=== PATIENT | male | born 1980 | race Caucasian/White ===

== ENCOUNTER 2016-06-04 18:09 | Emergency (ER) | payer OTHER ==
[2016-06-04] MEDS ORDERED: LANSOPRAZOLE 30 MG TAB.RAP.DR PO ONE (18:30)
--- NOTE | 2016-06-04 18:36 | ER Document Report ---
ED Medical Screen (RME) - General Stated Complaint: ABDOMINAL PAIN Time seen by provider: 18:33 Mode of Arrival: Ambulatory Information source: Patient Notes: 36-year-old male complaining of burning left upper quadrant abdominal pain for 6 months. He drinks 9 beers 3 times a week. He has had pancreatitis in the past but it does not hurt that bad. No black in his stools. He came in tonight because the pain has gotten worse the past 2-3 days. I have greeted and performed a rapid initial assessment of this patient. A comprehensive ED assessment, evaluation of the patient, analysis of test results , and completion of the medical decision making process will be contacted by additional ED providers. TRAVEL OUTSIDE OF THE [place] IN LAST 30 DAYS: No - Related Data Allergies/Adverse Reactions: No Known Allergies Allergy (Verified 06/04/16 18:32) Past Medical History - Social History Chew tobacco use (# tins/day): No Frequency of alcohol use: Social Drug Abuse: None Renal/ Medical History: Denies: Hx Peritoneal Dialysis - Immunizations Hx Diphtheria, Pertussis, Tetanus Vaccination: Yes - unk Physical Exam - Vital signs Vitals: Temp Pulse Resp BP Pulse Ox 97.8 F 90 16 134/79 H 99 06/04/16 18:11 06/04/16 18:11 06/04/16 18:11 06/04/16 18:11 06/04/16 18:11 Course - Vital Signs Vital signs: Temp Pulse Resp BP Pulse Ox 97.8 F 90 16 134/79 H 99 06/04/16 18:11 06/04/16 18:11 06/04/16 18:11 06/04/16 18:11 06/04/16 18:11
[2016-06-04 18:56] LABS: ABSOLUTE BASOPHILS # (AUTO) 0.1 10^3/uL (0.0-0.2); ABSOLUTE EOSINOPHILS # (AUTO) 0.3 10^3/uL (0.0-0.6); ABSOLUTE LYMPHOCYTES (AUTO) 3.3 10^3/uL (0.5-4.7); ABSOLUTE MONOCYTES (AUTO) 0.6 10^3/uL (0.1-1.4); ABSOLUTE NEUT (AUTO) 8.7 10^3/uL (1.7-8.2); BASOPHILS % (AUTO) 0.5 % (0-2); EOSINOPHILS % (AUTO) 2.2 % (0-6); HEMATOCRIT 42.2 % (37.9-51.0); HGB HCT DIFFERENCE -0.2; LYMPHOCYTES % (AUTO) 25.4 % (13-45); MEAN CORPUSCULAR HEMOGLOBIN 30.9 pg (27.0-33.4); MEAN CORPUSCULAR HGB CONC 33.2 g/dL (32.0-36.0); MEAN CORPUSCULAR VOLUME 93 fl (80-97); MONOCYTES % (AUTO) 4.7 % (3-13); RED BLOOD COUNT 4.53 10^6/uL (4.35-5.55); RED CELL DISTRIBUTION WIDTH 13.1 % (11.5-14.0); SEGMENTED NEUTROPHILS % (AUTO) 67.2 % (42-78); WHITE BLOOD COUNT 12.9 10^3/uL (4.0-10.5)
[2016-06-04 19:17] LABS: ALANINE AMINOTRANSFERASE 24 U/L (21-72); ALBUMIN 4.7 g/dL (3.5-5.0); ALKALINE PHOSPHATASE 66 U/L (38-126); ANION GAP 10 (5-19); ASPARTATE AMINO TRANSFERASE 19 U/L (17-59); BILIRUBIN,TOTAL 0.5 mg/dL (0.2-1.3); BLOOD UREA NITROGEN 19 mg/dL (7-20); CALCIUM 10.1 mg/dL (8.4-10.2); CARBON DIOXIDE 28 mmol/L (22-30); CHLORIDE 105 mmol/L (98-107); CREATININE RESULT 0.96 mg/dL (0.52-1.25); GLUCOSE 75 mg/dL (75-110); LIPASE 36.5 U/L (23-300); POTASSIUM 4.8 mmol/L (3.6-5.0); TOTAL PROTEIN 7.3 g/dL (6.3-8.2)
[2016-06-04] MEDS ORDERED: MAG HYDROX/AL HYDROX/SIMETH SUSP 30 ML UDCUP PO ONE (20:15)
[2016-06-04] MEDS ORDERED: FAMOTIDINE 20 MG TABLET PO ONE (20:15)
[2016-06-04] MEDS ORDERED: SUCRALFATE 1 GM TABLET PO ONE (20:15)
[2016-06-04] MEDS ORDERED: IPRATROPIUM/ALBUTEROL 0.5-2.5 MG/3 ML AMPUL NEB ONE (20:15)
--- NOTE | 2016-06-04 20:17 | ER Document Report ---
ED GI/ - General Chief Complaint: Abdominal Pain Stated Complaint: ABDOMINAL PAIN Time seen by provider: 20:10 Mode of Arrival: Ambulatory Notes: Patient is a 36-year-old male that comes emergency department for chief complaint of worsening burning and pain in his left upper abdomen, worse over the past 2-3 days, he states that he has been drinking more regular alcohol after the holidays, states he smokes regularly. Patient states he has had pancreatitis in the past but this does not feel as bad, he denies vomiting, he denies abnormal bowel movements, he denies any abdominal surgeries or medical problems. TRAVEL OUTSIDE OF THE [place] IN LAST 30 DAYS: No - Related Data Allergies/Adverse Reactions: No Known Allergies Allergy (Verified 06/04/16 18:32) Past Medical History - General Information source: Patient - Social History Smoking Status: Current Every Day Smoker Chew tobacco use (# tins/day): No Smoking Education Provided: Yes - <3 min Frequency of alcohol use: Social Drug Abuse: None Lives with: Family Family History: Reviewed & Not Pertinent Patient has suicidal ideation: No Patient has homicidal ideation: No - Medical History Medical History: Negative Renal/ Medical History: Denies: Hx Peritoneal Dialysis Surgical Hx: Negative - Immunizations Hx Diphtheria, Pertussis, Tetanus Vaccination: Yes - unk Review of Systems - Review of Systems Constitutional: No symptoms reported EENT: No symptoms reported Cardiovascular: No symptoms reported Respiratory: No symptoms reported Gastrointestinal: See HPI Genitourinary: No symptoms reported Male Genitourinary: No symptoms reported Musculoskeletal: No symptoms reported Skin: No symptoms reported Hematologic/Lymphatic: No symptoms reported Neurological/Psychological: No symptoms reported Physical Exam - Vital signs Vitals: Temp Pulse Resp BP Pulse Ox 97.8 F 90 16 134/79 H 99 06/04/16 18:11 06/04/16 18:11 06/04/16 18:11 06/04/16 18:11 06/04/16 18:11 Interpretation: Normal - General General appearance: Appears well, Alert In distress: None - HEENT Head: Normocephalic, Atraumatic Eyes: Normal Pupils: PERRL - Respiratory Respiratory status: No respiratory distress Chest status: Nontender Breath sounds: Normal Chest palpation: Normal - Cardiovascular Rhythm: Regular Heart sounds: Normal auscultation Murmur: No - Abdominal Inspection: Normal Distension: No distension Bowel sounds: Normal Tenderness: Tender - Patient is tender in the left upper quadrant on examination , otherwise abdomen is unremarkable Organomegaly: No organomegaly - Back Back: Normal, Nontender. No: Tender - Extremities General upper extremity: Normal inspection, Nontender, Normal color, Normal ROM , Normal temperature General lower extremity: Normal inspection, Nontender, Normal color, Normal ROM , Normal temperature, Normal weight bearing. No: Nicolette's sign - Neurological Neuro grossly intact: Yes Cognition: Normal Orientation: AAOx4 [place] Coma Scale Eye Opening: Spontaneous [place] Coma Scale Verbal: Oriented [place] Coma Scale Motor: Obeys Commands [place] Coma Scale Total: 15 Speech: Normal Motor strength normal: LUE, RUE, LLE, RLE Sensory: Normal - Psychological Associated symptoms: Normal affect, Normal mood - Skin Skin Temperature: Warm Skin Moisture: Dry Skin Color: Normal Course - Re-evaluation Re-evalutation: Left upper quadrant tenderness, negative lipase, CBC and chemistry generally unremarkable otherwise. Patient given Carafate, Pepcid, Maalox, after this patient reports symptoms significantly improved. Will treat for gastritis, discussed smoking cessation, discussed risk factors, follow-up, and return precautions. Patient states understanding and agreement with plan. - Vital Signs Vital signs: Temp Pulse Resp BP Pulse Ox 97.6 F 62 18 123/81 100 06/04/16 21:01 06/04/16 21:01 06/04/16 21:01 06/04/16 21:01 06/04/16 21:01 - Laboratory Result Diagrams: 06/04/16 18:35 06/04/16 18:35 Laboratory results interpreted by me: 06/04/16 18:35 WBC 12.9 H Absolute Neutrophils 8.7 H Discharge - Discharge Clinical Impression: Abdominal pain Qualifiers: Abdominal location: upper abdomen, unspecified Qualified Code(s): R10.10 - Upper abdominal pain, unspecified Condition: Stable Disposition: HOME, SELF-CARE Additional Instructions: Your lab work and examination does not indicate pancreatitis or another surgical abnormality Your examination is consistent with inflammation in your stomach and small intestine (gastritis) Take the Carafate and omeprazole as directed, take Tums or Rolaids in addition if needed, avoid alcohol, smoking, spicy food, caffeine, NSAIDs. Follow-up with primary care referral for additional management. Return to the emergency department for any concerning or worsening symptoms including severe abdominal pain, vomiting blood, black stools, etc. Prescriptions: Omeprazole 40 mg PO DAILY #60 capsule. Sucralfate [Carafate 1 gm Tablet] 1 gm PO QID #40 tablet Forms: Smoking Cessation Education Referrals: [facility] [Provider Group] - Follow up as needed
[2016-06-04 21:11] VITALS: BP 123/81
== END 2016-06-04 21:12 | disposition home or self-care (01) ==
LOC: ER 18:09
DX: R10.12 Left upper quadrant pain (principal); R10.812 Left upper quadrant abdominal tenderness; F17.200 Nicotine dependence, unspecified, uncomplicated; Z71.6 Tobacco abuse counseling; Z87.19 Personal history of other diseases of the digestive system
CPT/HCPCS: 94640; 99284; 36415; 83690; 85025; 80053; J7620

== ENCOUNTER 2016-06-12 21:55 | Emergency (ER) | payer OTHER ==
[2016-06-13] MEDS ORDERED: NORMAL SALINE 1000 ML 1,000 ML IV PRN (01:15)
[2016-06-13] MEDS ORDERED: FAMOTIDINE INJ/PF 20 MG/2 ML SDV IV ONE (01:15)
[2016-06-13] MEDS ORDERED: ONDANSETRON HCL INJ/PF 4 MG/2 ML SDV IV ONE (01:15)
--- NOTE | 2016-06-13 01:16 | ER Document Report ---
ED GI/ - General Chief Complaint: Abdominal Pain Stated Complaint: BACK PAIN Time seen by provider: 01:16 Mode of Arrival: Ambulatory Information source: Patient TRAVEL OUTSIDE OF THE [place] IN LAST 30 DAYS: No - HPI Patient complains to provider of: Abdominal pain Onset: Just prior to arrival Timing/Duration: Sudden Quality of pain: Sharp, Stabbing Severity at maximum: Moderate Severity in ED: Moderate Pain Level: 3 Location: Epigastric Associated symptoms: Nausea Exacerbated by: Denies Relieved by: Denies Similar symptoms previously: Yes Recently seen / treated by doctor: Yes Notes: 06/13/16 04:09 Patient is a 36-year-old male presenting to the emergency room complaining of epigastric abdominal pain that is sharp and stabbing in nature, as well as bilateral flank pain, he reports nausea associated with it but no vomiting or diarrhea, no fever, 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 and states he was drinking on Monday, he also reports a history of a possible gastric ulcer, was recently prescribed Carafate which he states is not helping - Related Data Allergies/Adverse Reactions: No Known Allergies Allergy (Verified 06/12/16 22:04) Home Medications: Current Home Medications Omeprazole [Prilosec] 2 tab PO BID 06/12/16 [History] Sucralfate [Sucralfate] 1 tab PO Q6H 06/12/16 [History] Past Medical History - General Information source: Patient - Social History Smoking Status: Current Every Day Smoker Chew tobacco use (# tins/day): No Frequency of alcohol use: Social Drug Abuse: None Family History: Reviewed & Not Pertinent Renal/ Medical History: Denies: Hx Peritoneal Dialysis - Immunizations Hx Diphtheria, Pertussis, Tetanus Vaccination: Yes - unk Review of Systems - Review of Systems Constitutional: No symptoms reported EENT: No symptoms reported Cardiovascular: No symptoms reported Respiratory: No symptoms reported Gastrointestinal: See HPI Genitourinary: No symptoms reported Male Genitourinary: No symptoms reported Musculoskeletal: No symptoms reported Skin: No symptoms reported Hematologic/Lymphatic: No symptoms reported Neurological/Psychological: No symptoms reported -: Yes All other systems reviewed and negative Physical Exam - Vital signs Vitals: Temp Pulse Resp BP Pulse Ox 98.0 F 78 18 134/84 H 98 06/12/16 22:02 06/12/16 22:02 06/12/16 22:02 06/12/16 22:02 06/12/16 22:02 Interpretation: Normal - General General appearance: Appears well, Alert - HEENT Head: Normocephalic, Atraumatic Eyes: Normal Pupils: PERRL - Respiratory Respiratory status: No respiratory distress Chest status: Nontender Breath sounds: Normal Chest palpation: Normal - Cardiovascular Rhythm: Regular Heart sounds: Normal auscultation Murmur: No - Abdominal Inspection: Normal Distension: No distension Bowel sounds: Normal Tenderness: Tender - Epigastric tenderness Organomegaly: No organomegaly - Back Back: Normal, Nontender - Extremities General upper extremity: Normal inspection, Nontender, Normal color, Normal ROM , Normal temperature General lower extremity: Normal inspection, Nontender, Normal color, Normal ROM , Normal temperature, Normal weight bearing. No: Nicolette's sign - Neurological Neuro grossly intact: Yes Cognition: Normal Orientation: AAOx4 [place] Coma Scale Eye Opening: Spontaneous [place] Coma Scale Verbal: Oriented [place] Coma Scale Motor: Obeys Commands [place] Coma Scale Total: 15 Speech: Normal Motor strength normal: LUE, RUE, LLE, RLE Sensory: Normal - Psychological Associated symptoms: Normal affect, Normal mood - Skin Skin Temperature: Warm Skin Moisture: Dry Skin Color: Normal Course - Re-evaluation Re-evalutation: 06/13/16 02:50 Patient's labs were discussed with him at bedside which are relatively unremarkable, he does have a mildly elevated lipase, patient was advised to discontinue alcohol consumption, follow up with a pasting machine offbearer in 2-3 days or return if symptoms worsen, since Carafate does not seem to be helping his symptoms we will change the medication to Pepcid, patient was advised to return if symptoms worsen or any additional concerns,, patient acknowledges understanding and agreement with this plan - Vital Signs Vital signs: Temp Pulse Resp BP Pulse Ox 97.7 F 74 16 133/83 H 98 06/13/16 03:09 06/13/16 03:09 06/13/16 03:09 06/13/16 03:09 06/13/16 03:09 - Laboratory Result Diagrams: 06/13/16 01:50 06/13/16 01:50 Laboratory results interpreted by me: 06/13/16 06/13/16 01:50 01:50 WBC 13.7 H Lipase 459.0 H Discharge - Discharge Clinical Impression: Epigastric abdominal pain Condition: Stable Disposition: HOME, SELF-CARE Instructions: Gastroenterology, Reflux Disease (GERD) ([facility]) Additional Instructions: Follow-up with a pasting machine offbearer in the next week. Stop drinking alcohol. Return to the emergency room immediately if symptoms worsen or any additional concerns. Prescriptions: Famotidine [Pepcid 20 mg Tablet] 20 mg PO BID #12 tablet
[2016-06-13 02:02] LABS: ABSOLUTE BASOPHILS # (AUTO) 0.1 10^3/uL (0.0-0.2); ABSOLUTE EOSINOPHILS # (AUTO) 0.4 10^3/uL (0.0-0.6); ABSOLUTE LYMPHOCYTES (AUTO) 4.3 10^3/uL (0.5-4.7); ABSOLUTE MONOCYTES (AUTO) 0.8 10^3/uL (0.1-1.4); ABSOLUTE NEUT (AUTO) 8.2 10^3/uL (1.7-8.2); BASOPHILS % (AUTO) 0.5 % (0-2); EOSINOPHILS % (AUTO) 2.7 % (0-6); HEMATOCRIT 40.8 % (37.9-51.0); HGB HCT DIFFERENCE 1.2; LYMPHOCYTES % (AUTO) 31.1 % (13-45); MEAN CORPUSCULAR HEMOGLOBIN 31.6 pg (27.0-33.4); MEAN CORPUSCULAR HGB CONC 34.3 g/dL (32.0-36.0); MEAN CORPUSCULAR VOLUME 92 fl (80-97); MONOCYTES % (AUTO) 5.6 % (3-13); RED BLOOD COUNT 4.44 10^6/uL (4.35-5.55); RED CELL DISTRIBUTION WIDTH 13.5 % (11.5-14.0); SEGMENTED NEUTROPHILS % (AUTO) 60.1 % (42-78); WHITE BLOOD COUNT 13.7 10^3/uL (4.0-10.5)
[2016-06-13 02:18] LABS: ALANINE AMINOTRANSFERASE 23 U/L (21-72); ALBUMIN 4.1 g/dL (3.5-5.0); ALKALINE PHOSPHATASE 62 U/L (38-126); ANION GAP 10 (5-19); ASPARTATE AMINO TRANSFERASE 19 U/L (17-59); BILIRUBIN,TOTAL 0.6 mg/dL (0.2-1.3); BLOOD UREA NITROGEN 14 mg/dL (7-20); CALCIUM 9.9 mg/dL (8.4-10.2); CARBON DIOXIDE 28 mmol/L (22-30); CHLORIDE 103 mmol/L (98-107); CREATININE RESULT 0.83 mg/dL (0.52-1.25); GLUCOSE 88 mg/dL (75-110); POTASSIUM 4.1 mmol/L (3.6-5.0); SODIUM 140.5 mmol/L (137-145); TOTAL PROTEIN 7.1 g/dL (6.3-8.2)
[2016-06-13 03:11] VITALS: BP 133/83
== END 2016-06-13 03:10 | disposition home or self-care (01) ==
LOC: ER 21:55
DX: R10.13 Epigastric pain (principal); R11.0 Nausea; F17.200 Nicotine dependence, unspecified, uncomplicated
CPT/HCPCS: 99284; 96361; 96374; 96375; 36415; 83690; 85025; 80053; J2405; J7030; S0028

== ENCOUNTER 2016-06-14 07:29 | Emergency (ER) | payer OTHER ==
--- NOTE | 2016-06-14 08:03 | EKG REPORT ---
SEVERITY:- NORMAL ECG - SINUS RHYTHM : Confirmed by: Dereje Mathew MD 14-Jun-2016 08:02:47
[2016-06-14 08:44] LABS: APPEARANCE,URINE SLIGHTLY-CLOUDY; BILIRUBIN,URINE NEGATIVE (NEGATIVE); GLUCOSE, URINE NEGATIVE (NEGATIVE); KETONES,URINE TRACE mg/dL (NEGATIVE); LEUKOCYTE ESTERASE,URINE NEGATIVE (NEGATIVE); NITRITE,URINE NEGATIVE (NEGATIVE); PROTEIN,URINE NEGATIVE (NEGATIVE); URINE SPECIFIC GRAVITY 1.021; UROBILINOGEN,URINE NEGATIVE mg/dL (<2.0)
[2016-06-14 08:46] LABS: ABSOLUTE BASOPHILS # (AUTO) 0.1 10^3/uL (0.0-0.2); ABSOLUTE EOSINOPHILS # (AUTO) 0.4 10^3/uL (0.0-0.6); ABSOLUTE LYMPHOCYTES (AUTO) 2.4 10^3/uL (0.5-4.7); ABSOLUTE MONOCYTES (AUTO) 0.9 10^3/uL (0.1-1.4); ABSOLUTE NEUT (AUTO) 13.4 10^3/uL (1.7-8.2); BASOPHILS % (AUTO) 0.4 % (0-2); EOSINOPHILS % (AUTO) 2.5 % (0-6); HEMATOCRIT 41.4 % (37.9-51.0); HEMOGLOBIN 14.2 g/dL (13.5-17.0); HGB HCT DIFFERENCE 1.2; LYMPHOCYTES % (AUTO) 13.8 % (13-45); MEAN CORPUSCULAR HEMOGLOBIN 31.4 pg (27.0-33.4); MEAN CORPUSCULAR HGB CONC 34.2 g/dL (32.0-36.0); MEAN CORPUSCULAR VOLUME 92 fl (80-97); MONOCYTES % (AUTO) 5.4 % (3-13); RED BLOOD COUNT 4.51 10^6/uL (4.35-5.55); SEGMENTED NEUTROPHILS % (AUTO) 77.9 % (42-78); WHITE BLOOD COUNT 17.2 10^3/uL (4.0-10.5)
[2016-06-14 09:08] LABS: ALANINE AMINOTRANSFERASE 21 U/L (21-72); ALBUMIN 4.5 g/dL (3.5-5.0); ALKALINE PHOSPHATASE 65 U/L (38-126); ANION GAP 10 (5-19); ASPARTATE AMINO TRANSFERASE 27 U/L (17-59); BILIRUBIN,TOTAL 0.5 mg/dL (0.2-1.3); BLOOD UREA NITROGEN 14 mg/dL (7-20); CALCIUM 9.6 mg/dL (8.4-10.2); CARBON DIOXIDE 26 mmol/L (22-30); CHLORIDE 104 mmol/L (98-107); CREATININE RESULT 0.77 mg/dL (0.52-1.25); GLUCOSE 113 mg/dL (75-110); POTASSIUM 3.7 mmol/L (3.6-5.0); SODIUM 139.7 mmol/L (137-145); TOTAL PROTEIN 7.2 g/dL (6.3-8.2)
[2016-06-14] MEDS ORDERED: ONDANSETRON HCL INJ/PF 4 MG/2 ML SDV IV ONE (09:10)
[2016-06-14 09:22] LABS: LIPASE 2087.8 U/L (23-300)
[2016-06-14] MEDS ORDERED: NORMAL SALINE 1000 ML 1,000 ML IV ONE (09:38)
[2016-06-14] MEDS ORDERED: MORPHINE SULFATE 10 MG/ML INJ IV ONE (09:54)
[2016-06-14 10:28] LABS: URINE BARBITURATES SCREEN NEGATIVE; URINE METHADONE SCREEN NEGATIVE; URINE OPIATES LOW UNCONFIRMED POSITIVE; URINE PHENCYCLIDINE SCREEN NEGATIVE
[2016-06-14] MEDS ORDERED: OXYCODONE HCL IR 5 MG TABLET PO ONE (12:05)
--- NOTE | 2016-06-14 12:11 | ER Document Report ---
ED General - General Chief Complaint: Upper Abdominal Pain Stated Complaint: ABDOMINAL, BACK AND CHEST PAIN TRAVEL OUTSIDE OF THE [place] IN LAST 30 DAYS: No - HPI Patient complains to provider of: epigastric and back pain Notes: A coming in for epigastric abdominal pain and back pain nausea vomiting. Patient has a history of pancreatitis. Patient with recent seen and evaluated diagnosed with gastritis. Patient states he continues to drink alcohol. Otherwise patient vital signs are within normal limits no signs of obvious distress upon my evaluation. No recent antibiotics no recent travel denies fevers chills diarrhea - Related Data Allergies/Adverse Reactions: No Known Allergies Allergy (Verified 06/14/16 07:41) Past Medical History - Social History Smoking Status: Current Every Day Smoker Chew tobacco use (# tins/day): Yes Frequency of alcohol use: Social Drug Abuse: None Family History: Reviewed & Not Pertinent Patient has suicidal ideation: No Patient has homicidal ideation: No Renal/ Medical History: Reports: Hx Kidney Stones. Denies: Hx Peritoneal Dialysis - Immunizations Hx Diphtheria, Pertussis, Tetanus Vaccination: Yes - unk Review of Systems - Review of Systems Gastrointestinal: Abdominal pain, Nausea, Vomiting -: Yes All other systems reviewed and negative Physical Exam - Vital signs Vitals: Temp Pulse Resp BP Pulse Ox 98.1 F 78 20 144/90 H 100 06/14/16 07:39 06/14/16 07:39 06/14/16 07:39 06/14/16 07:39 06/14/16 07:39 Interpretation: Normal - General General appearance: Appears well, Alert - HEENT Head: Normocephalic, Atraumatic Eyes: Normal Pupils: PERRL - Respiratory Respiratory status: No respiratory distress Chest status: Nontender Breath sounds: Normal Chest palpation: Normal - Cardiovascular Rhythm: Regular Heart sounds: Normal auscultation Murmur: No - Abdominal Inspection: Normal Distension: No distension Bowel sounds: Normal Tenderness: Tender - Mild tenderness epigastric region. No: McBurney's point, Muro's sign, Guarding, Rebound Organomegaly: No organomegaly - Back Back: Normal, Nontender - Extremities General upper extremity: Normal inspection, Nontender, Normal color, Normal ROM , Normal temperature General lower extremity: Normal inspection, Nontender, Normal color, Normal ROM , Normal temperature, Normal weight bearing. No: Nicolette's sign - Neurological Neuro grossly intact: Yes Cognition: Normal Orientation: AAOx4 [place] Coma Scale Eye Opening: Spontaneous [place] Coma Scale Verbal: Oriented [place] Coma Scale Motor: Obeys Commands [place] Coma Scale Total: 15 Speech: Normal Motor strength normal: LUE, RUE, LLE, RLE Sensory: Normal - Psychological Associated symptoms: Normal affect, Normal mood - Skin Skin Temperature: Warm Skin Moisture: Dry Skin Color: Normal Course - Re-evaluation Re-evalutation: 06/14/16 21:02 Patient's lab work is consistent with pancreatitis. Ultrasound was negative. More likely this is alcoholic induced pancreatitis patient has been diagnosed with this in the past. Patient able to tolerate by mouth. Patient's pain was under control here in the ER. Patient is a good candidate for outpatient management of his pancreatitis clear liquid diet for the next 24 hours then advance as tolerated patient states he understands these instructions agrees with discharge home - Vital Signs Vital signs: Temp Pulse Resp BP Pulse Ox 98.1 F 78 12 136/65 H 97 06/14/16 07:39 06/14/16 07:39 06/14/16 12:01 06/14/16 12:01 06/14/16 12:01 - Laboratory Result Diagrams: 06/14/16 08:22 06/14/16 08:22 Laboratory results interpreted by me: 06/14/16 06/14/16 06/14/16 08:22 08:22 08:22 WBC 17.2 H Absolute Neutrophils 13.4 H Glucose 113 H Lipase 2087.8 H Urine Ketones TRACE H Discharge - Discharge Clinical Impression: Alcoholic pancreatitis Qualifiers: Chronicity: acute Acute pancreatitis complication: unspecified Qualified Code(s ): K85.20 - Alcohol induced acute pancreatitis without necrosis or infection Condition: Good Disposition: HOME, SELF-CARE Instructions: Pancreatitis ([facility]), Chronic Alcoholism ([facility]), Oral Narcotic Medication ([facility]) Additional Instructions: Laboratory today is consistent with pancreatitis. Your ultrasound does not show any significant pathology. More likely this is due to alcohol ingestion. Take pain medication as prescribed nausea medication as prescribed. Return to ER symptoms worsen follow-up with your primary care physician. Please stop drinking alcohol Please continue your previously prescribe medications for gastritis. Prescriptions: Ondansetron [Zofran Odt 4 mg Tablet] 1 - 2 tab PO Q4H PRN #20 tab.rapdis PRN Reason: For Nausea/Vomiting Oxycodone HCl 5 mg PO Q6 #30 tablet Forms: Return to Work
[2016-06-14 12:20] VITALS: BP 136/65
== END 2016-06-14 12:32 | disposition home or self-care (01) ==
LOC: ER 07:29
DX: K85.20 Alcohol induced acute pancreatitis without necrosis or infection (principal); R10.10 Upper abdominal pain, unspecified; M54.9 Dorsalgia, unspecified; R07.9 Chest pain, unspecified; R11.2 Nausea with vomiting, unspecified; F17.210 Nicotine dependence, cigarettes, uncomplicated
CPT/HCPCS: 93005; 99284; 96374; 96375; 36415; 80307 ×2; 83690; 85025; 80053; 81001; 76705; 93976; 93010; J2270; J2405; J7030

== ENCOUNTER 2016-07-03 23:53 | Emergency (ER) | payer OTHER ==
[2016-07-04] VITALS: BP 111/74
== END 2016-07-04 00:10 | disposition left against medical advice (07) ==
LOC: ER 23:53
DX: Z53.21 Procedure and treatment not carried out due to patient leaving prior to being seen by health care provider (principal)

== ENCOUNTER 2016-07-26 09:25 | Emergency (ER) | payer OTHER ==
[2016-07-26 10:12] LABS: ABSOLUTE EOSINOPHILS # (AUTO) 0.5 10^3/uL (0.0-0.6); ABSOLUTE LYMPHOCYTES (AUTO) 2.8 10^3/uL (0.5-4.7); ABSOLUTE MONOCYTES (AUTO) 0.8 10^3/uL (0.1-1.4); BASOPHILS % (AUTO) 0.3 % (0-2); EOSINOPHILS % (AUTO) 4.1 % (0-6); HEMATOCRIT 45.2 % (37.9-51.0); HEMOGLOBIN 15.7 g/dL (13.5-17.0); HGB HCT DIFFERENCE 1.9; LYMPHOCYTES % (AUTO) 25.5 % (13-45); MEAN CORPUSCULAR HEMOGLOBIN 31.7 pg (27.0-33.4); MEAN CORPUSCULAR HGB CONC 34.6 g/dL (32.0-36.0); MEAN CORPUSCULAR VOLUME 92 fl (80-97); RED BLOOD COUNT 4.93 10^6/uL (4.35-5.55); RED CELL DISTRIBUTION WIDTH 12.9 % (11.5-14.0); SEGMENTED NEUTROPHILS % (AUTO) 63.1 % (42-78); WHITE BLOOD COUNT 11.1 10^3/uL (4.0-10.5)
[2016-07-26 10:26] LABS: APPEARANCE,URINE SLIGHTLY-CLOUDY; BILIRUBIN,URINE NEGATIVE (NEGATIVE); GLUCOSE, URINE NEGATIVE (NEGATIVE); KETONES,URINE TRACE mg/dL (NEGATIVE); LEUKOCYTE ESTERASE,URINE NEGATIVE (NEGATIVE); NITRITE,URINE NEGATIVE (NEGATIVE); PROTEIN,URINE NEGATIVE (NEGATIVE); URINE SPECIFIC GRAVITY 1.031; UROBILINOGEN,URINE NEGATIVE mg/dL (<2.0)
[2016-07-26 10:32] LABS: ALANINE AMINOTRANSFERASE 25 U/L (21-72); ALBUMIN 4.9 g/dL (3.5-5.0); ALKALINE PHOSPHATASE 59 U/L (38-126); ANION GAP 13 (5-19); ASPARTATE AMINO TRANSFERASE 19 U/L (17-59); BILIRUBIN,DIRECT 0.3 mg/dL (0.0-0.4); BLOOD UREA NITROGEN 17 mg/dL (7-20); CALCIUM 10.5 mg/dL (8.4-10.2); CARBON DIOXIDE 27 mmol/L (22-30); CHLORIDE 103 mmol/L (98-107); CREATININE RESULT 0.86 mg/dL (0.52-1.25); GLUCOSE 102 mg/dL (75-110); LIPASE 53.4 U/L (23-300); POTASSIUM 4.8 mmol/L (3.6-5.0); SODIUM 142.9 mmol/L (137-145); TOTAL PROTEIN 7.9 g/dL (6.3-8.2)
--- NOTE | 2016-07-26 11:15 | ER Document Report ---
ED General - General Chief Complaint: Abdominal Pain Stated Complaint: ABDOMINAL PAIN Mode of Arrival: Ambulatory Information source: Patient Notes: 36-year-old male chronic alcoholic with history of pancreatitis presents with complaints of abdominal pain. Patient is pains ongoing now for 3 days is in epigastric region. Patient does admit to drinking alcohol on Monday. Patient notes pain is not similar to his previous pancreatitis is more similar to his previous gastric reflux. Patient notes pain has improved significantly over the past 3 days TRAVEL OUTSIDE OF THE [place] IN LAST 30 DAYS: No - HPI Onset: Other Onset/Duration: Persistent, Better Quality of pain: Burning Severity: Mild Pain Level: 1 Associated symptoms: None Exacerbated by: Denies Relieved by: Denies Similar symptoms previously: Yes Recently seen / treated by doctor: Yes - Related Data Allergies/Adverse Reactions: No Known Allergies Allergy (Verified 07/26/16 09:32) Past Medical History - Social History Smoking Status: Current Every Day Smoker Cigarette use (# per day): Yes Chew tobacco use (# tins/day): No Smoking Education Provided: No Frequency of alcohol use: Occasional Drug Abuse: None Family History: Reviewed & Not Pertinent Patient has suicidal ideation: No Patient has homicidal ideation: No Renal/ Medical History: Reports: Hx Kidney Stones. Denies: Hx Peritoneal Dialysis Surgical Hx: Negative - Immunizations Hx Diphtheria, Pertussis, Tetanus Vaccination: Yes - unk Review of Systems - Review of Systems Notes: REVIEW OF SYSTEMS: CONSTITUTIONAL : Denies fever, chills, or sweats. Denies recent illness. EENT: Denies eye, ear, throat, or mouth pain or symptoms. Denies nasal or sinus congestion or discharge. Denies throat, tongue, or mouth swelling or difficulty swallowing. CARDIOVASCULAR: Denies chest pain. Denies palpitations or racing or irregular heart beat. Denies ankle edema. RESPIRATORY: Denies cough, cold, or chest congestion. Denies shortness of breath, difficulty breathing, or wheezing. GASTROINTESTINAL: Admits to epigastric pain GENITOURINARY: Denies difficulty urinating, painful urination, burning, frequency, blood in urine, or discharge. MUSCULOSKELETAL: Denies back or neck pain or stiffness. Denies joint pain or swelling. SKIN: Denies rash, lesions or sores. HEMATOLOGIC : Denies easy bruising or bleeding. LYMPHATIC: Denies swollen, enlarged glands. NEUROLOGICAL: Denies confusion or altered mental status. Denies passing out or loss of consciousness. Denies dizziness or lightheadedness. Denies headache. Denies weakness or paralysis or loss of use of either side. Denies problems with gait or speech. Denies sensory loss, numbness, or tingling. Denies seizures. PSYCHIATRIC: Denies anxiety or stress. Denies depression, suicidal ideation, or homicidal ideation. ALL OTHER SYSTEMS REVIEWED AND NEGATIVE. Dictation was performed using [email or web address] voice recognition software PHYSICAL EXAMINATION: GENERAL: Well-appearing, well-nourished and in no acute distress. HEAD: Atraumatic, normocephalic. EYES: Pupils equal round and reactive to light, extraocular movements intact, sclera anicteric, conjunctiva are normal. ENT: Nares patent, oropharynx clear without exudates. Moist mucous membranes. NECK: Normal range of motion, supple without lymphadenopathy LUNGS: Breath sounds clear to auscultation bilaterally and equal. No wheezes rales or rhonchi. HEART: Regular rate and rhythm without murmurs ABDOMEN: Soft, mild tender to epigastric region Musculoskeletal: Normal range of motion, no pitting or edema. No cyanosis. NEUROLOGICAL: Cranial nerves grossly intact. Normal speech, normal gait. Normal sensory, motor exams PSYCH: Normal mood, normal affect. SKIN: Warm, Dry, normal turgor, no rashes or lesions noted. Physical Exam - Vital signs Vitals: Temp Pulse Resp BP Pulse Ox 97.6 F 78 14 116/74 98 07/26/16 09:29 07/26/16 09:29 07/26/16 09:29 07/26/16 09:29 07/26/16 09:29 Course - Re-evaluation Re-evalutation: 07/26/16 15:04 Lab work does not note any pancreatitis at this time, patient will be treated for gastric reflux, patient is very happy with this plan, I will give follow-up with GI specialist as well. Patient instructed to return immediately if there are any other concerns After performing a Medical Screening Examination, I estimate there is LOW risk for ACUTE APPENDICITIS, BOWEL OBSTRUCTION, ACUTE CHOLECYSTITIS, PERFORATED DIVERTICULITIS, INCARCERATED HERNIA, PANCREATITIS, or PERFORATED ULCER, thus I consider the discharge disposition reasonable. Also, there is no evidence or peritonitis, sepsis, or toxicity. The patient and I have discussed the diagnosis and risks, and we agree with discharging home with close follow-up with the understanding that symptoms and presentations can change. We also discussed returning to the Emergency Department immediately if new or worsening symptoms occur. We have discussed the symptoms which are most concerning (e.g., bloody stool, fever, changing or worsening pain, intractable vomiting - standard verbal up date) that necessitate immediate return. - Vital Signs Vital signs: Temp Pulse Resp BP Pulse Ox 97.6 F 56 L 16 115/81 100 07/26/16 12:00 07/26/16 12:00 07/26/16 12:00 07/26/16 12:00 07/26/16 12:00 - Laboratory Result Diagrams: 07/26/16 10:00 07/26/16 10:00 Laboratory results interpreted by me: 07/26/16 07/26/16 07/26/16 10:00 10:00 10:00 WBC 11.1 H Calcium 10.5 H Urine Ketones TRACE H Discharge - Discharge Clinical Impression: GERD (gastroesophageal reflux disease) Qualifiers: Esophagitis presence: esophagitis presence not specified Qualified Code(s): K21.9 - Gastro-esophageal reflux disease without esophagitis Abdominal pain Qualifiers: Abdominal location: epigastric Qualified Code(s): R10.13 - Epigastric pain Condition: Stable Disposition: HOME, SELF-CARE Instructions: Antinausea Medication ([facility]) Prescriptions: Famotidine [Pepcid 20 mg Tablet] 20 mg PO BID #60 tablet Omeprazole Magnesium [Prilosec Otc] 20 mg PO DAILY #30 tablet.dr Referrals: ANGY FAUST MD [ACTIVE STAFF] - Follow up tomorrow
[2016-07-26] MEDS ORDERED: MAG HYDROX/AL HYDROX/SIMETH SUSP 30 ML UDCUP PO ONE (11:16)
[2016-07-26] MEDS ORDERED: METOCLOPRAMIDE HCL ORAL SOLN 10 MG/10 ML UDCUP PO ONE (11:16)
[2016-07-26] MEDS ORDERED: LIDOCAINE 2% VISCOUS SOLN 20 ML UDCUP PO ONE (11:16)
[2016-07-26 12:01] VITALS: BP 115/81
== END 2016-07-26 12:01 | disposition home or self-care (01) ==
LOC: ER 09:25
DX: K21.9 Gastro-esophageal reflux disease without esophagitis (principal); R10.13 Epigastric pain; F17.210 Nicotine dependence, cigarettes, uncomplicated; Z87.442 Personal history of urinary calculi
CPT/HCPCS: 99284; 36415; 83690; 85025; 80053; 81001; J3490

== ENCOUNTER 2016-09-11 12:04 | Emergency (ER) | payer OTHER ==
[2016-09-11] MEDS ORDERED: ASPIRIN 81 MG TABLET, CHEWABLE PO ONE (12:30)
[2016-09-11] MEDS ORDERED: NORMAL SALINE 1000 ML 1,000 ML IV PRN (12:33)
--- NOTE | 2016-09-11 12:33 | ER Document Report ---
ED Medical Screen (RME) - General Chief Complaint: Chest Pain Stated Complaint: CHEST PAIN,BACK PAIN Time seen by provider: 12:32 Mode of Arrival: Ambulatory Information source: Patient Notes: This is a 36-year-old man with a history of alcoholic pancreatitis, peptic ulcer disease or this morning with right sided sharp chest pain radiating to the back. Patient denies any worsening with positional changes or inspiration. Patient denies any changes with exertion. The pain is sharp and constant. He denies any abdominal pain. He does have bilateral breath sounds in triage. TRAVEL OUTSIDE OF THE [place] IN LAST 30 DAYS: No - Related Data Allergies/Adverse Reactions: No Known Allergies Allergy (Verified 07/26/16 09:32) Past Medical History Renal/ Medical History: Reports: Hx Kidney Stones. Denies: Hx Peritoneal Dialysis - Immunizations Hx Diphtheria, Pertussis, Tetanus Vaccination: Yes - unk Physical Exam - Vital signs Vitals: Temp Pulse Resp BP Pulse Ox 97.7 F 62 20 139/97 H 100 09/11/16 12:17 09/11/16 12:17 09/11/16 12:17 09/11/16 12:17 09/11/16 12:17 Course - Vital Signs Vital signs: Temp Pulse Resp BP Pulse Ox 97.7 F 62 20 139/97 H 100 09/11/16 12:17 09/11/16 12:17 09/11/16 12:17 09/11/16 12:17 09/11/16 12:17
[2016-09-11] MEDS ORDERED: HYDROMORPHONE HCL INJ/PF 2 MG/ML AMPULE IV ONE ×2 (12:40→14:02)
[2016-09-11] MEDS ORDERED: ONDANSETRON HCL INJ/PF 4 MG/2 ML SDV IV ONE (12:40)
[2016-09-11 12:46] LABS: ABSOLUTE BASOPHILS # (AUTO) 0.1 10^3/uL (0.0-0.2); ABSOLUTE EOSINOPHILS # (AUTO) 0.5 10^3/uL (0.0-0.6); ABSOLUTE LYMPHOCYTES (AUTO) 2.3 10^3/uL (0.5-4.7); ABSOLUTE MONOCYTES (AUTO) 0.5 10^3/uL (0.1-1.4); ABSOLUTE NEUT (AUTO) 5.1 10^3/uL (1.7-8.2); BASOPHILS % (AUTO) 0.8 % (0-2); EOSINOPHILS % (AUTO) 5.4 % (0-6); HEMATOCRIT 43.3 % (37.9-51.0); HEMOGLOBIN 14.7 g/dL (13.5-17.0); HGB HCT DIFFERENCE 0.8; LYMPHOCYTES % (AUTO) 27.2 % (13-45); MEAN CORPUSCULAR HEMOGLOBIN 31.3 pg (27.0-33.4); MEAN CORPUSCULAR HGB CONC 33.9 g/dL (32.0-36.0); MEAN CORPUSCULAR VOLUME 92 fl (80-97); MONOCYTES % (AUTO) 5.8 % (3-13); RED BLOOD COUNT 4.69 10^6/uL (4.35-5.55); RED CELL DISTRIBUTION WIDTH 13.4 % (11.5-14.0); SEGMENTED NEUTROPHILS % (AUTO) 60.8 % (42-78); WHITE BLOOD COUNT 8.4 10^3/uL (4.0-10.5)
[2016-09-11 13:06] LABS: ALANINE AMINOTRANSFERASE 23 U/L (21-72); ALBUMIN 4.7 g/dL (3.5-5.0); ALKALINE PHOSPHATASE 63 U/L (38-126); ANION GAP 13 (5-19); ASPARTATE AMINO TRANSFERASE 19 U/L (17-59); BILIRUBIN,DIRECT 0.3 mg/dL (0.0-0.4); BILIRUBIN,TOTAL 0.7 mg/dL (0.2-1.3); BLOOD UREA NITROGEN 17 mg/dL (7-20); CALCIUM 10.3 mg/dL (8.4-10.2); CARBON DIOXIDE 27 mmol/L (22-30); CHLORIDE 102 mmol/L (98-107); CREATINE KINASE 95 U/L (55-170); CREATININE RESULT 0.88 mg/dL (0.52-1.25); GLUCOSE 119 mg/dL (75-110); LIPASE 629.4 U/L (23-300); POTASSIUM 4.4 mmol/L (3.6-5.0); SODIUM 142.1 mmol/L (137-145); TOTAL PROTEIN 7.5 g/dL (6.3-8.2)
[2016-09-11 13:18] LABS: CREATINE KINASE MB 0.54 ng/mL (<4.55)
[2016-09-11 13:19] LABS: TROPONIN I < 0.012 ng/mL
[2016-09-11] MEDS ORDERED: METOCLOPRAMIDE HCL INJ/PF 10 MG/2 ML SDV IV ONE (14:00)
[2016-09-11] MEDS ORDERED: DIPHENHYDRAMINE HCL 50 MG/ML VIAL IV ONE (14:01)
[2016-09-11] MEDS ORDERED: KETOROLAC TROMETHAMINE INJ/PF 30 MG/1 ML SDV IV ONE (14:01)
--- NOTE | 2016-09-11 14:06 | ER Document Report ---
ED General - General Chief Complaint: Chest Pain Stated Complaint: CHEST PAIN,BACK PAIN Mode of Arrival: Ambulatory Notes: Patient is complaining of pain in the right anterior chest that was present when he awakened this morning. He says the pain is sharp and increasing in intensity and seems to come from the right lower chest up to the right top and into the right back. Patient says he was well and fine last night when he went to bed. Had no problems during the night either. At this time, he would describe his pain as severe. He says he's nauseated but hasn't vomited. Has had a couple of diarrhea stools for the past couple of days. Patient has a history of alcohol-related pancreatitis and was treated at this hospital for the same in June. Patient says he drank a sixpack of beer Monday night didn 't have any pain then. Has had some cough and congestion and some shortness of breath, but denies any fevers. Her regular prescription medications. TRAVEL OUTSIDE OF THE [place] IN LAST 30 DAYS: No - Related Data Allergies/Adverse Reactions: No Known Allergies Allergy (Verified 07/26/16 09:32) Home Medications: Current Home Medications Famotidine [Pepcid 20 mg Tablet] 20 mg PO DAILY 09/11/16 [History] Past Medical History - General Information source: Patient - Social History Smoking Status: Current Every Day Smoker Frequency of alcohol use: Occasional - History of heavy Family History: Reviewed & Not Pertinent Patient has suicidal ideation: No Patient has homicidal ideation: No Renal/ Medical History: Reports: Hx Kidney Stones. Denies: Hx Peritoneal Dialysis GI Medical History: Reports: Other - Pancreatitis Surgical Hx: Negative - Immunizations Hx Diphtheria, Pertussis, Tetanus Vaccination: Yes - unk Review of Systems - Review of Systems Notes: REVIEW OF SYSTEMS: CONSTITUTIONAL : Denies fever. EENT: Denies eye, ear, nose or mouth or throat pain or other symptoms. CARDIOVASCULAR: See history of present illness. RESPIRATORY: See history of present illness. Patient has had some cough and congestion. Also mild shortness of breath. GASTROINTESTINAL: See history of present illness. Patient has had nausea but not vomiting. Diarrhea for a couple of days. GENITOURINARY: Denies difficulty or painful urinating, urinary frequency, blood in urine. MUSCULOSKELETAL: Denies back or neck pain. Denies joint pain or swelling. SKIN: Denies rash or skin lesions. NEUROLOGICAL: Denies LOC or altered mental status. Denies headache. Denies sensory loss or motor deficits. ALL OTHER SYSTEMS REVIEWED AND NEGATIVE. Physical Exam - Vital signs Vitals: Temp Pulse Resp BP Pulse Ox 97.7 F 62 20 139/97 H 100 09/11/16 12:17 09/11/16 12:17 09/11/16 12:17 09/11/16 12:17 09/11/16 12:17 Interpretation: Normal - Notes Notes: PHYSICAL EXAMINATION: GENERAL: Well-appearing, in no acute distress. Appears to be in pain. Had Dilaudid when triage. Vital signs are all normal. HEAD: Atraumatic, normocephalic. NECK: Normal range of motion, supple. LUNGS: Breath sounds clear and equal bilaterally. HEART: Regular rate and rhythm without murmurs. ABDOMEN: Soft, nontender. No guarding or rebound. No masses felt. BACK: No tenderness throughout entire back. EXTREMITIES: Normal range of motion without pain. NEUROLOGICAL: Normal speech, normal gait. Normal sensory, motor, and reflex exams. Awake, alert, and oriented x3. Cranial nerves normal. SKIN: Warm, dry, no rashes. Course - Re-evaluation Re-evalutation: 09/11/16 14:18 Discussed the case with hospitalist who will evaluate the patient for recommended disposition. 09/11/16 15:34 Patient was evaluated by Dr. Conrad, hospitalist field contact person, who feels the patient does not have indications for admission for further observation of his chest pain as it does not sound to be cardiac in nature. Additionally, even though his lipase is 600, patient can be managed as an outpatient for mild pancreatitis. Also, patient does not wish to be admitted to the hospital for further observation or care. 09/11/16 20:22 Patient's urine drug screen came back after his discharge which showed positive for marijuana but also for opioids. I'm not sure where the patient got these medications because he didn't mention them to me when I was obtaining his history. - Vital Signs Vital signs: Temp Pulse Resp BP Pulse Ox 97.5 F 62 18 136/78 H 100 09/11/16 16:01 09/11/16 12:17 09/11/16 16:01 09/11/16 16:01 09/11/16 16:01 - Laboratory Result Diagrams: 09/11/16 12:25 09/11/16 12:25 Laboratory results interpreted by me: 09/11/16 12:25 Glucose 119 H Calcium 10.3 H Lipase 629.4 H - Diagnostic Test Radiology results interpreted by me: 09/11/16 14:17 Chest x-ray is normal - EKG Interpretation by Me Rate: Normal Rhythm: Other - Patient has an ectopic rhythm on the EKG today. Additional EKG results interpreted by me: 09/11/16 14:17 EKG is normal. Discharge - Discharge Clinical Impression: Chest pain, non-cardiac Pancreatitis Qualifiers: Chronicity: acute Pancreatitis type: alcohol induced Acute pancreatitis complication: unspecified Qualified Code(s): K85.20 - Alcohol induced acute pancreatitis without necrosis or infection Condition: Stable Disposition: HOME, SELF-CARE Additional Instructions: CHEST PAIN OF UNCLEAR CAUSE: The exact cause of your chest pain isn't clear. Fortunately, there is no evidence of a dangerous medical condition. Further testing may be required to find the source of the pain. Most often, we find that this pain is coming from the chest wall -- the muscles or rib joints in the chest. But chest pain can come from the lung and lung lining, the esophagus, the heart valves or heart lining, and even the stomach or gallbladder. Rest. Eat lightly until the pain is gone. We may prescribe medicine for pain and inflammation. You should call the physician immediately if the pain radiates to the shoulder, jaw or arms; if you start to run a fever or develop a cough; or if you develop shortness of breath, or other new or alarming symptoms. NORMAL EXAM AND WORKUP: At this time, except for your slightly elevated lipase from your pancreas, your examination and workup show no significant abnormality. No significant abnormal physical findings were noted. All laboratory, EKG, and imaging (x-ray , CT scans, ultrasound) studies that were ordered show no significant abnormality. Although your examination and all studies that were ordered showed no significant abnormal finding, there are no examinations and no studies that are 100% accurate. There is always the possibility that some abnormality could exist and not be detected with physical examination or within the limits and capabilities of laboratory and other studies. You should return or follow up as you were instructed on your visit today for further evaluation if your symptoms do not resolve. CHEST WALL PAIN: Your chest pain may be coming from the chest wall. This is often caused by straining the muscles or joints in the chest during physical activity, direct trauma, coughing, or vigorous vomiting. Persons with arthritis are especially prone to this type of pain, due to inflammation of the cartilage joints near the breast bone. Occasionally, no cause can be found. Rest from strenuous physical activity. This kind of chest pain is usually made worse by movement of the chest. Depending on the symptoms, we may prescribe medicine for pain, muscle relaxation, and antiinflammatory effects. If the pain is new, and seems to be due to muscle strain, cold packs can help. Otherwise, apply gentle warmth to the painful area for 15 minutes every hour or two. You should call contact the doctor immediately if things change. Further evaluation is needed if you develop a fever or cough, if the nature of the pain changes, or if you become short of breath. Mild Pancreatitis Pancreatitis is an inflammation of the pancreas, an organ at the back of your abdomen. The pancreas produces insulin and enzymes that digest your food. Pancreatitis can be caused by gallstones in the bile duct, by alcohol or viruses, or by excess fat or calcium in the blood stream. Occasionally, pancreatitis occurs when a stomach ulcer merino through into the pancreas. We try to find the cause of pancreatitis, but some tests can't be done until the pancreas heals. The usual symptoms of pancreatitis are pain in the pit of the stomach that goes straight through to the back, vomiting, and low-grade fever. Severe cases require hospital admission, but many patients with mild pancreatitis do well at home. You will probably need medicine for pain and for vomiting. Sometimes we prescribe medicine to decrease stomach acid secretion and to decrease flow of pancreatic juices. Start with a diet of clear liquids (soda pop, juices). When the pain is decreasing, you can add some simple starches (potato, toast, applesauce). Avoid proteins and fats until you are completely painfree. When you're better, your doctor may suggest treatment to prevent future pancreatitis (such as gallbladder removal). Avoid alcohol forever. Get immediate treatment for any future episodes. Contact your doctor at once or return here if you have increasing pain, shortness of breath, general swelling, increasing size of the abdomen, continued vomiting, muscle spasms, or other new symptoms. Antinausea Medication You have been given a medication to suppress nausea and vomiting. This type of medication can be given as a shot, pill, or suppository. It will usually last for many hours. Pills and shots usually last six to eight hours, suppositories last about 12 hours. For the typical illness, only one or two doses of the medication may be necessary. Mild lightheadedness may occur. This type of medicine can cause drowsiness. Do not drive or operate dangerous machinery while under its influence. Do not mix with alcohol. See your doctor at once if you have muscle spasms or tightness, or uncontrollable motions (particularly of the neck, mouth, or jaw). Persistent vomiting or severe lightheadedness should also be evaluated by the physician. Ultram Ultram is an excellent drug for pain relief. It is not a narcotic, but it works in a similar way. Ultram can take up to two hours for full effect. Although not addicting, Ultram is best avoided in patients with a history of drug abuse. Ultram should not be used with alcohol, sleeping pills, or narcotics. If you're prone to seizures, Ultram can make you more likely to have a seizure. Ultram can be hazardous when combined with MAO-inhibitor antidepressants (such as Nardil or Parnate). Be sure your doctor is aware of all medicines you are taking. Persons with severe liver or kidney disease should increase the time between doses of Ultram. Discuss this with your doctor if you're uncertain. Side effects of Ultram can include dizziness, nausea, constipation, sleepiness, and itching. (These side effects are also seen with narcotic pain medicines.) Please call your doctor if you have other disturbing effects. Pancreatitis is directly correlated with alcohol intake. If you drink alcohol you're going to have repeated episodes of pancreatitis. We recommend you stop drinking all alcohol in any form in any amount. FOLLOW-UP CARE: If you have been referred to a physician for follow-up care, call the physician s office for an appointment as you were instructed or within the next two days. If you experience worsening or a significant change in your symptoms, notify the physician immediately or return to the Emergency Department at any time for re-evaluation. Prescriptions: Tramadol HCl [Ultram 50 mg Tablet] 50 mg PO Q4HP PRN #15 tablet PRN Reason: Promethazine HCl [Phenergan 25 mg Tablet] 1 - 2 tab PO Q6H PRN #15 tablet PRN Reason: Forms: Return to Work
[2016-09-11] MEDS ORDERED: PANTOPRAZOLE SODIUM 40 MG VIAL IV ONE (14:45)
--- NOTE | 2016-09-11 15:09 | PDOC CONSULTATION ---
Consultation Consult Date: 09/11/16 Attending physician:: ANDREW LAWTON History of Present Illness Admission Date/PCP: Patient not admitted No PCP History of Present Illness: ALBINA GARCIAS is a 36 year old male with a history of peptic ulcer disease , alcohol pancreatitis, alcohol abuse, tobacco abuse, marijuana abuse who presents to the emergency department with complaints of a one day history of right upper chest pain that radiates through his chest. He reports that he's had a chest cold for one month has been productive of green sputum. He reports that he occasionally has some wheezing with this. Reports that she is "kind of comes and goes but he's decreased his cigarette consumption the meantime. He reports was no change in his chest pain with breathing. He reports that his chest pain is sharp. There are no aggravating or alleviating symptoms. Patient reports that he last drank a 6 pack on Monday. He denies any fever/ chills. He denies that his current abdominal discomfort feels like his prior pancreatitis. He reports is primarily right upper quadrant and he says that it is changed with positioning. He reports that he mowed the lawn on Monday without any chest pain or shortness of breath. He denies any associated diaphoresis, shortness of breath, nausea or vomiting. Patient reports he had an episode of vomiting but has just been administered Dilaudid. At this time, patient does not feel that he needs to be admitted, and that was discussed with the ER provider. Past Medical History Past Medical History: Alcoholism, pancreatitis GI Medical History: Reports: Other - Pancreatitis Hematology: Denies: Anemia Past Surgical History Past Surgical History: Reports: None Social History Smoking Status: Current Every Day Smoker Frequency of Alcohol Use: Heavy Hx Recreational Drug Use: Yes Drugs: Marijuana Hx Prescription Drug Abuse: No Family History Family History: Reviewed & Not Pertinent Parental Family History Reviewed: Yes Children Family History Reviewed: NA Sibling(s) Family History Reviewed.: NA Medication/Allergy Home Medications: Famotidine [Pepcid 20 mg Tablet] 20 mg PO DAILY 09/11/16 Allergies/Adverse Reactions: No Known Allergies Allergy (Verified 07/26/16 09:32) Review of Systems Constitutional: ABSENT: chills, fever(s), headache(s), weight gain, weight loss Eyes: ABSENT: visual disturbances Ears: ABSENT: hearing changes Cardiovascular: PRESENT: as per HPI, chest pain. ABSENT: dyspnea on exertion, edema, orthropnea, palpitations Respiratory: ABSENT: cough, hemoptysis Gastrointestinal: PRESENT: as per HPI, abdominal pain. ABSENT: constipation, diarrhea, hematemesis, hematochezia, melena, nausea, vomiting Genitourinary: ABSENT: dysuria, hematuria Musculoskeletal: ABSENT: joint swelling Integumentary: ABSENT: rash, wounds Neurological: ABSENT: abnormal gait, abnormal speech, confusion, dizziness, focal weakness, syncope Psychiatric: ABSENT: anxiety, depression, homidical ideation, suicidal ideation Endocrine: ABSENT: cold intolerance, heat intolerance, polydipsia, polyuria Hematologic/Lymphatic: ABSENT: easy bleeding, easy bruising Physical Exam Vital Signs: Temp Pulse Resp BP Pulse Ox 97.7 F 62 17 146/101 H 98 09/11/16 12:17 09/11/16 12:17 09/11/16 13:47 09/11/16 13:47 09/11/16 13:47 Intake & Output 09/10/16 09/11/16 09/12/16 06:59 06:59 06:59 Weight 77.111 kg General appearance: PRESENT: no acute distress, well-developed, well-nourished Head exam: PRESENT: atraumatic, normocephalic Eye exam: PRESENT: conjunctiva pink, EOMI, PERRLA. ABSENT: scleral icterus Ear exam: PRESENT: normal external ear exam Mouth exam: PRESENT: dry mucosa, tongue midline Respiratory exam: PRESENT: clear to auscultation leandro. ABSENT: rales, rhonchi, wheezes Cardiovascular exam: PRESENT: bradycardia, RRR, +S1, +S2. ABSENT: diastolic murmur, gallop, rubs, systolic murmur Pulses: PRESENT: normal dorsalis pedis pul Vascular exam: PRESENT: normal capillary refill GI/Abdominal exam: PRESENT: normal bowel sounds, organolmegaly - Hepatomegaly, soft. ABSENT: distended, firm, guarding, mass, rebound, rigid, tenderness Rectal exam: PRESENT: deferred Extremities exam: PRESENT: full ROM. ABSENT: calf tenderness, clubbing, pedal edema Neurological exam: PRESENT: alert, awake, oriented to person, oriented to place , oriented to time, oriented to situation, CN II-XII grossly intact. ABSENT: motor sensory deficit Psychiatric exam: PRESENT: appropriate affect, normal mood. ABSENT: homicidal ideation, suicidal ideation Skin exam: PRESENT: dry, intact, warm. ABSENT: cyanosis, rash Results Laboratory Results: 09/11/16 12:25 09/11/16 12:25 09/11/16 09/11/16 12:25 12:25 WBC 8.4 RBC 4.69 Hgb 14.7 Hct 43.3 MCV 92 MCH 31.3 MCHC 33.9 RDW 13.4 Plt Count 328 Seg Neutrophils % 60.8 Lymphocytes % 27.2 Monocytes % 5.8 Eosinophils % 5.4 Basophils % 0.8 Absolute Neutrophils 5.1 Absolute Lymphocytes 2.3 Absolute Monocytes 0.5 Absolute Eosinophils 0.5 Absolute Basophils 0.1 Sodium 142.1 Potassium 4.4 Chloride 102 Carbon Dioxide 27 Anion Gap 13 BUN 17 Creatinine 0.88 Est GFR ( Amer) > 60 Est GFR (Non-Af Amer) > 60 Glucose 119 H Calcium 10.3 H Total Bilirubin 0.7 AST 19 ALT 23 Alkaline Phosphatase 63 Total Protein 7.5 Albumin 4.7 Lipase 629.4 H 09/11/16 09/11/16 12:25 12:25 Creatine Kinase 95 CK-MB (CK-2) 0.54 Troponin I < 0.012 Impressions: Chest X-Ray 09/11/16 12:30 IMPRESSION: NO ACUTE RADIOGRAPHIC FINDING IN THE CHEST. Assessment & Plan - Diagnosis (1) Alcohol abuse Is this a current diagnosis for this admission?: Yes (2) Bronchitis Is this a current diagnosis for this admission?: Yes (3) Tobacco abuse Is this a current diagnosis for this admission?: Yes - Time Time Spent: 30 to 50 Minutes Medications reviewed and adjusted accordingly: Yes Anticipated discharge: Home - Plan Summary Plan Summary: At this time, has advised patient to stop drinking alcohol and stop smoking. I have also discussed this with your provider, Dr. Lawton, and he has agreed to discharge this patient. I defer any treatment of patient's underlying conditions to him at this time and patient has also been advised that he can follow[facility] with [facility] as he does not have insurance.
[2016-09-11 16:00] LABS: URINE BARBITURATES SCREEN NEGATIVE; URINE METHADONE SCREEN NEGATIVE; URINE OPIATES LOW UNCONFIRMED POSITIVE; URINE PHENCYCLIDINE SCREEN NEGATIVE
[2016-09-11 16:10] VITALS: BP 136/78
--- NOTE | 2016-09-11 16:22 | EKG REPORT ---
SEVERITY:- ABNORMAL ECG - ECTOPIC ATRIAL BRADYCARDIA ABNRM R PROG, CONSIDER ASMI OR LEAD PLACEMENT : Confirmed by: Dereje Mathew MD 11-Sep-2016 16:21:47
--- NOTE | 2016-09-11 16:23 | EKG REPORT ---
SEVERITY:- BORDERLINE ECG - ECTOPIC ATRIAL RHYTHM : Confirmed by: Dereje Mathew MD 11-Sep-2016 16:22:07
== END 2016-09-11 16:11 | disposition home or self-care (01) ==
LOC: ER 12:04
DX: R07.89 Other chest pain (principal); K85.20 Alcohol induced acute pancreatitis without necrosis or infection; R05 Cough; R11.0 Nausea; R06.02 Shortness of breath; F17.210 Nicotine dependence, cigarettes, uncomplicated
CPT/HCPCS: 93005 ×2; 96376; 99285; 96374; 96375; 36415; 82553; 82550; 83690; 85025; 80053; 84484; 80307; 71010; 93010; J1200; J1885; J2765; J1170; S0164; J2405; J7030

== ENCOUNTER 2016-09-14 16:13 | Emergency (ER) | payer OTHER ==
--- NOTE | 2016-09-14 17:00 | ER Document Report ---
ED Medical Screen (RME) - General Chief Complaint: Abdominal Pain Stated Complaint: ABDOMINAL PAIN Time Seen by Provider: 09/14/16 16:59 Notes: 36 yo male c/o RUQ, epigastric pain x 1 day. + n/v. no fever. + hx/o PUD, pancreatitis. pt was seen in ED 3 days ago for chest pain. Lipase at that time was 629. pt last drank 6 days ago, 6 pack. TRAVEL OUTSIDE OF THE [place] IN LAST 30 DAYS: No - Related Data Allergies/Adverse Reactions: No Known Allergies Allergy (Verified 09/14/16 16:41) Past Medical History - Social History Frequency of alcohol use: 12 pk/week Renal/ Medical History: Reports: Hx Kidney Stones. Denies: Hx Peritoneal Dialysis Surgical Hx: Negative - Immunizations Hx Diphtheria, Pertussis, Tetanus Vaccination: Yes - unk Physical Exam - Vital signs Vitals: Temp Pulse Resp BP Pulse Ox 98.6 F 104 H 14 106/68 98 09/14/16 16:26 09/14/16 16:26 09/14/16 16:26 09/14/16 16:26 09/14/16 16:26 Course - Vital Signs Vital signs: Temp Pulse Resp BP Pulse Ox 98.6 F 104 H 14 106/68 98 09/14/16 16:26 09/14/16 16:26 09/14/16 16:26 09/14/16 16:26 09/14/16 16:26
[2016-09-14 17:25] LABS: ABSOLUTE BASOPHILS # (AUTO) 0.1 10^3/uL (0.0-0.2); ABSOLUTE EOSINOPHILS # (AUTO) 0.2 10^3/uL (0.0-0.6); ABSOLUTE LYMPHOCYTES (AUTO) 3.4 10^3/uL (0.5-4.7); ABSOLUTE MONOCYTES (AUTO) 0.5 10^3/uL (0.1-1.4); ABSOLUTE NEUT (AUTO) 7.3 10^3/uL (1.7-8.2); BASOPHILS % (AUTO) 0.5 % (0-2); EOSINOPHILS % (AUTO) 1.4 % (0-6); HEMATOCRIT 42.9 % (37.9-51.0); HEMOGLOBIN 14.6 g/dL (13.5-17.0); HGB HCT DIFFERENCE 0.9; LYMPHOCYTES % (AUTO) 29.7 % (13-45); MEAN CORPUSCULAR HEMOGLOBIN 31.4 pg (27.0-33.4); MEAN CORPUSCULAR VOLUME 92 fl (80-97); MONOCYTES % (AUTO) 4.6 % (3-13); RED BLOOD COUNT 4.66 10^6/uL (4.35-5.55); RED CELL DISTRIBUTION WIDTH 13.2 % (11.5-14.0); SEGMENTED NEUTROPHILS % (AUTO) 63.8 % (42-78); WHITE BLOOD COUNT 11.5 10^3/uL (4.0-10.5)
[2016-09-14 17:48] LABS: ALANINE AMINOTRANSFERASE 24 U/L (21-72); ALBUMIN 4.8 g/dL (3.5-5.0); ALKALINE PHOSPHATASE 58 U/L (38-126); ANION GAP 12 (5-19); ASPARTATE AMINO TRANSFERASE 22 U/L (17-59); BILIRUBIN,DIRECT 0.4 mg/dL (0.0-0.4); BILIRUBIN,TOTAL 0.7 mg/dL (0.2-1.3); BLOOD UREA NITROGEN 18 mg/dL (7-20); CALCIUM 10.2 mg/dL (8.4-10.2); CARBON DIOXIDE 28 mmol/L (22-30); CHLORIDE 102 mmol/L (98-107); CREATININE RESULT 1.03 mg/dL (0.52-1.25); GLUCOSE 125 mg/dL (75-110); LIPASE 99.1 U/L (23-300); POTASSIUM 4.5 mmol/L (3.6-5.0); SODIUM 141.8 mmol/L (137-145); TOTAL PROTEIN 7.9 g/dL (6.3-8.2)
[2016-09-14] MEDS ORDERED: METOCLOPRAMIDE HCL ORAL SOLN 10 MG/10 ML UDCUP PO ONE (19:09)
[2016-09-14] MEDS ORDERED: MAG HYDROX/AL HYDROX/SIMETH SUSP 30 ML UDCUP PO ONE (19:09)
[2016-09-14] MEDS ORDERED: LIDOCAINE 2% VISCOUS SOLN 20 ML UDCUP PO ONE (19:09)
--- NOTE | 2016-09-14 19:13 | ER Document Report ---
ED General - General Chief Complaint: Abdominal Pain Stated Complaint: ABDOMINAL PAIN Time Seen by Provider: 09/14/16 16:59 Mode of Arrival: Ambulatory Information source: Patient Notes: This is a 36-year-old male with a history of alcohol abuse and alcoholic pancreatitis as well as peptic ulcer disease who presents for evaluation of epigastric pain. Of note he states that he has had gastric discomfort since this morning. He was able to go to work. He did vomit twice today but states he then took his Phenergan which has helped. He is currently feeling better than he did this morning. His only PO today was "a few [employer] [place] fries" after work today at about 1500. Last BM this morning: soft. No fevers or chills. States last ETOH was Monday 5 days ago. Of note, he was seen here in the ER 3 days ago for chest pain and his lipase was about 600 at that time. TRAVEL OUTSIDE OF THE [place] IN LAST 30 DAYS: No - Related Data Allergies/Adverse Reactions: No Known Allergies Allergy (Verified 09/14/16 16:41) Past Medical History - General Information source: Patient, [facility] Records - Social History Smoking Status: Current Every Day Smoker Frequency of alcohol use: 12 pk/week Family History: Reviewed & Not Pertinent Patient has suicidal ideation: No Patient has homicidal ideation: No Renal/ Medical History: Reports: Hx Kidney Stones. Denies: Hx Peritoneal Dialysis Surgical Hx: Negative - Immunizations Hx Diphtheria, Pertussis, Tetanus Vaccination: Yes - unk Review of Systems - Review of Systems Notes: REVIEW OF SYSTEMS: CONSTITUTIONAL : Denies fever, chills, or sweats. Denies recent illness. EENT: Denies eye, ear, throat, or mouth pain or symptoms. Denies nasal or sinus congestion. CARDIOVASCULAR: Denies chest pain. RESPIRATORY: Denies cough, cold, or chest congestion. Denies shortness of breath, difficulty breathing, or wheezing. GASTROINTESTINAL: As per history of present illness GENITOURINARY: Denies difficulty urinating, painful urination, burning, frequency, or blood in urine. MUSCULOSKELETAL: Denies neck or back pain or joint pain or swelling. SKIN: Denies rash or skin lesions. HEMATOLOGIC : Denies easy bruising or bleeding. LYMPHATIC: Denies swollen, enlarged glands. NEUROLOGICAL: Denies altered mental status or loss of consciousness. Denies headache. PSYCHIATRIC: Denies anxiety or stress or depression. ALL OTHER SYSTEMS REVIEWED AND NEGATIVE. Physical Exam - Vital signs Vitals: Temp Pulse Resp BP Pulse Ox 98.6 F 104 H 14 106/68 98 09/14/16 16:09/14/16 16:09/14/16 16:09/14/16 16:09/14/16 16:26 - Notes Notes: PHYSICAL EXAMINATION: GENERAL: Well-appearing, well-nourished and in no acute distress. Very pleasant and conversant HEAD: Atraumatic, normocephalic. EYES: Pupils equal round and reactive to light, extraocular movements intact, sclera anicteric, conjunctiva are normal. ENT: nares patent, oropharynx clear without exudates. Moist mucous membranes. NECK: Normal range of motion, supple without lymphadenopathy LUNGS: Breath sounds clear to auscultation bilaterally and equal. No wheezes rales or rhonchi. HEART: Regular rate and rhythm without murmurs ABDOMEN: Soft, normoactive bowel sounds. No guarding, no rebound. No masses appreciated. TTP in epigastric area. No peritonitis. Neg Muro's EXTREMITIES: Normal range of motion, no pitting or edema. No cyanosis. NEUROLOGICAL: Cranial nerves grossly intact. No gross focal motor or sensory deficits appreciated. PSYCH: Normal mood, normal affect. SKIN: Warm, Dry, normal turgor, no rashes or lesions noted. Course - Re-evaluation Re-evalutation: 09/14/16 22:24 Patient has remained comfortable and hemodynamically stable here in the emergency department. His labs are reassuring and his lipase has returned to normal. His ultrasound is significant for gallbladder sludge but no ultrasound findings of cholecystitis. Negative Muro sign. He is instructed to continue his pepcid, and I will add nexium. Of note he does tell me that he has been eating very spicy foods most recently a buffalo wrap last night. We discussed dietary modifications given his peptic ulcer disease and his recent flare of pancreatitis. He is to follow up for his endoscopy and with the community care clinic. Return precautions were discussed - Vital Signs Vital signs: Temp Pulse Resp BP Pulse Ox 98.6 F 104 H 14 106/68 98 09/14/16 16:26 09/14/16 16:09/14/16 16:09/14/16 16:09/14/16 16:26 - Laboratory Result Diagrams: 09/14/16 17:10 09/14/16 17:10 Laboratory results interpreted by me: 09/14/16 09/14/16 17:10 17:10 WBC 11.5 H Glucose 125 H Discharge - Discharge Clinical Impression: Dyspepsia Abdominal pain Qualifiers: Abdominal location: epigastric Qualified Code(s): R10.13 - Epigastric pain Condition: Stable Disposition: HOME, SELF-CARE Additional Instructions: Dyspepsia Dyspepsia is discomfort caused by irritation of the esophagus, stomach and duodenum (first part of the small intestine). In dyspepsia, x-rays and even endoscopy are normal despite continuing symptoms. The cause is not known. Dyspepsia is increased by stress, smoking, and alcohol. Symptoms can include upper abdominal discomfort, heartburn, nausea, or chest discomfort. Dyspepsia is often improved by food or antacid, and is frequently worse at night. These symptoms may also be early symptoms of an ulcer. An evaluation is done to look for ulcers and other stomach diseases. This often includes a test for the Helicobactor Pylori germ. Liquid antacids are often effective at relieving symptoms. Over-the- counter medications that block acid production (such as Tagamet, Zantac, Pepcid , Axid, or Prilosec) may be recommended, or the doctor can prescribe a stronger acid-diana. Avoid aspirin, antiinflammatory medications (Motrin, Nuprin), alcohol, smoking, and caffeine. Follow-up with your physician is very important. You need to be seen immediately if there's no improvement after a few days of treatment, increasing abdominal pain, repeated vomiting, or black stools. As discussed, avoid spicy foods or other foods that seem to exacerbate your symptoms. Prescriptions: Esomeprazole Magnesium [Nexium] 40 mg PO DAILY #30 capsule.
[2016-09-14 22:42] VITALS: BP 117/83
== END 2016-09-14 22:42 | disposition home or self-care (01) ==
LOC: ER 16:13
DX: K27.9 Peptic ulcer, site unspecified, unspecified as acute or chronic, without hemorrhage or perforation (principal); K82.9 Disease of gallbladder, unspecified; R10.13 Epigastric pain; R11.10 Vomiting, unspecified; F17.200 Nicotine dependence, unspecified, uncomplicated; Z87.19 Personal history of other diseases of the digestive system; Z87.11 Personal history of peptic ulcer disease; Z87.442 Personal history of urinary calculi
CPT/HCPCS: 99284; 36415; 83690; 85025; 80053; 76705; J3490

== ENCOUNTER 2016-10-24 09:20 | Day surgery (SDC) | payer OTHER ==
[2016-10-24] MEDS ORDERED: PROPOFOL INJ 200 MG/20 ML VIAL IV ONE (09:26)
[2016-10-24 11:43] VITALS: BP 114/67
--- NOTE | 2016-10-24 13:41 | Operative Report ---
Operative Report DATE OF SURGERY: 10/24/16 Operative Report: The risks benefits and alternatives of the procedure explained to the patient in detail and informed consent is obtained. A GIF Olympus video scope was inserted into the patient's mouth and hypopharynx, the esophagus is identified intubated and insufflated, the scope was then advanced through the esophagus stomach and duodenum, retroflexion maneuver is done, the esophagus stomach and first and second portions of the duodenum examined PREOPERATIVE DIAGNOSIS: Epigastric pain rule out peptic ulcer disease. POSTOPERATIVE DIAGNOSIS: Whitten's esophagus. Status post ablation. No ulcers noted in the antrum. First and second portions of the duodenum are normal. OPERATION: EGD with ablation SURGEON: CEE ALEXANDER ANESTHESIA: LMAC TISSUE REMOVED OR ALTERED: None. COMPLICATIONS: None. ESTIMATED BLOOD LOSS: None. INTRAOPERATIVE FINDINGS: No stricture noted. Evidence of Whitten's esophagus. No gastric ulcer noted. First and second portions of the duodenum normal. PROCEDURE: Patient tolerated the procedure well. No immediate postprocedure complications are noted. Patient discharged in good condition. Discharge date 10/24/2016. Discharge diet: Regular. Discharge activity: Regular. 2-3 week follow-up to discuss findings. We will wait on biopsies. Patient is instructed to call the office or proceed to the emergency room should there be any further problems or questions.
== END 2016-10-24 11:20 | disposition home or self-care (01) ==
LOC: END 09:20
PROVIDERS: ATTEND Internal Medicine Gastroenterology
PROC: 0D558ZZ Destruction of Esophagus, Via Natural or Artificial Opening Endoscopic (ICD-10-PCS; principal; 2016-10-24 11:00)
DX: K22.70 Barrett's esophagus without dysplasia (principal); Z79.899 Other long term (current) drug therapy
CPT/HCPCS: 43270; J2704; 740

== ENCOUNTER 2017-06-04 12:50 | Emergency (ER) | payer SELFPAY ==
[2017-06-04 12:55] VITALS: BP 132/82
--- NOTE | 2017-06-04 13:29 | ER Document Report ---
ED General - General Chief Complaint: Abdominal Pain Stated Complaint: ABDOMINAL PAIN Time Seen by Provider: 06/04/17 13:13 Mode of Arrival: Ambulatory Information source: Patient Notes: 37 yr old male presents with complaints of wanting his lipase checked. pt notes he was binge drinking in [place] and his lipase was very high. Pt notes that he did drink a week ago, has no serious abd pain, mil nausea with no vomiting. Pt states hes anxious and just wants the labs done TRAVEL OUTSIDE OF THE [place] IN LAST 30 DAYS: No - HPI Onset: Last week Onset/Duration: Sudden Quality of pain: No pain Severity: None Pain Level: Denies Associated symptoms: Nausea Exacerbated by: Other - alcohol Relieved by: Denies Similar symptoms previously: No Recently seen / treated by doctor: No - Related Data Allergies/Adverse Reactions: No Known Allergies Allergy (Verified 06/04/17 12:51) Past Medical History - Social History Smoking Status: Current Every Day Smoker Cigarette use (# per day): Yes Chew tobacco use (# tins/day): No Smoking Education Provided: No Frequency of alcohol use: monday last drink Drug Abuse: None Family History: Reviewed & Not Pertinent Patient has suicidal ideation: No Patient has homicidal ideation: No - Past Medical History Cardiac Medical History: Denies: Hx Coronary Artery Disease, Hx Heart Attack, Hx Hypertension Pulmonary Medical History: Denies: Hx Asthma, Hx Bronchitis, Hx COPD, Hx Pneumonia Neurological Medical History: Denies: Hx Cerebrovascular Accident, Hx Seizures Renal/ Medical History: Reports: Hx Kidney Stones. Denies: Hx Peritoneal Dialysis Musculoskeltal Medical History: Denies Hx Arthritis - Immunizations Hx Diphtheria, Pertussis, Tetanus Vaccination: Yes - unk Review of Systems - Review of Systems Notes: REVIEW OF SYSTEMS: CONSTITUTIONAL : Denies fever, chills, or sweats. Denies recent illness. EENT: Denies eye, ear, throat, or mouth pain or symptoms. Denies nasal or sinus congestion or discharge. Denies throat, tongue, or mouth swelling or difficulty swallowing. CARDIOVASCULAR: Denies chest pain. Denies palpitations or racing or irregular heart beat. Denies ankle edema. RESPIRATORY: Denies cough, cold, or chest congestion. Denies shortness of breath, difficulty breathing, or wheezing. GASTROINTESTINAL: admits to nausea GENITOURINARY: Denies difficulty urinating, painful urination, burning, frequency, blood in urine, or discharge. MUSCULOSKELETAL: Denies back or neck pain or stiffness. Denies joint pain or swelling. SKIN: Denies rash, lesions or sores. HEMATOLOGIC : Denies easy bruising or bleeding. LYMPHATIC: Denies swollen, enlarged glands. NEUROLOGICAL: Denies confusion or altered mental status. Denies passing out or loss of consciousness. Denies dizziness or lightheadedness. Denies headache. Denies weakness or paralysis or loss of use of either side. Denies problems with gait or speech. Denies sensory loss, numbness, or tingling. Denies seizures. PSYCHIATRIC: Denies anxiety or stress. Denies depression, suicidal ideation, or homicidal ideation. ALL OTHER SYSTEMS REVIEWED AND NEGATIVE. Dictation was performed using [employer] voice recognition software PHYSICAL EXAMINATION: GENERAL: Well-appearing, well-nourished and in no acute distress. HEAD: Atraumatic, normocephalic. EYES: Pupils equal round and reactive to light, extraocular movements intact, sclera anicteric, conjunctiva are normal. ENT: Nares patent, oropharynx clear without exudates. Moist mucous membranes. NECK: Normal range of motion, supple without lymphadenopathy LUNGS: Breath sounds clear to auscultation bilaterally and equal. No wheezes rales or rhonchi. HEART: Regular rate and rhythm without murmurs ABDOMEN: Soft, nontender, nondistended abdomen. No guarding, no rebound. No masses appreciated. Musculoskeletal: Normal range of motion, no pitting or edema. No cyanosis. NEUROLOGICAL: Cranial nerves grossly intact. Normal speech, normal gait. Normal sensory, motor exams PSYCH: Normal mood, normal affect. SKIN: Warm, Dry, normal turgor, no rashes or lesions noted. 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 I willdc since he has labs drawn and will call him but xplained the risks of him leaving. Pt is alert oriented and understands and verbalized the risks After performing a Medical Screening Examination, I estimate there is LOW risk for ACUTE APPENDICITIS, BOWEL OBSTRUCTION, ACUTE CHOLECYSTITIS, PERFORATED DIVERTICULITIS, INCARCERATED HERNIA, PANCREATITIS, TESTICULAR TORSION or PERFORATED ULCER, thus I consider the discharge disposition reasonable. Also, there is no evidence or peritonitis, sepsis, or toxicity. I have reevaluated this patient multiple times and no significant life threatening changes are noted. The patient and I have discussed the diagnosis and risks, and we agree with discharging home with close follow-up with the understanding that symptoms and presentations can change. We also discussed returning to the Emergency Department immediately if new or worsening symptoms occur. We have discussed the symptoms which are most concerning (e.g., bloody stool, fever, changing or worsening pain, intractable vomiting - standard verbal up date) that necessitate immediate return. - Vital Signs Vital signs: Temp Pulse Resp BP Pulse Ox 98.7 F 83 20 132/82 H 96 06/04/17 12:54 06/04/17 12:54 06/04/17 12:54 06/04/17 12:54 06/04/17 12:54 Discharge - Discharge Clinical Impression: Hx of pancreatitis Abdominal pain Qualifiers: Abdominal location: unspecified location Qualified Code(s): R10.9 - Unspecified abdominal pain Condition: Stable Disposition: HOME, SELF-CARE Instructions: Pancreatitis ([facility]) Additional Instructions: Follow up with your physician tomorrow for further care or return to the ED IMMEDIATELY if symptoms worsen or new concerns occur. If you cannot afford to follow up with your primary care physician a list of low cost clinics have been provided at the end of your discharge papers as well. Prescriptions: Metoclopramide HCl [Reglan 10 mg Tablet] 1 - 2 tab PO ASDIR PRN #25 tablet PRN Reason:
[2017-06-04 13:41] LABS: ABSOLUTE BASOPHILS # (AUTO) 0.1 10^3/uL (0.0-0.2); ABSOLUTE EOSINOPHILS # (AUTO) 0.2 10^3/uL (0.0-0.6); ABSOLUTE LYMPHOCYTES (AUTO) 2.4 10^3/uL (0.5-4.7); ABSOLUTE MONOCYTES (AUTO) 0.7 10^3/uL (0.1-1.4); ABSOLUTE NEUT (AUTO) 11.6 10^3/uL (1.7-8.2); BASOPHILS % (AUTO) 0.3 % (0-2); HEMATOCRIT 43.8 % (37.9-51.0); LYMPHOCYTES % (AUTO) 15.9 % (13-45); MEAN CORPUSCULAR HEMOGLOBIN 31.3 pg (27.0-33.4); MEAN CORPUSCULAR HGB CONC 34.1 g/dL (32.0-36.0); MEAN CORPUSCULAR VOLUME 92 fl (80-97); MONOCYTES % (AUTO) 4.9 % (3-13); PLATELET COUNT 345 10^3/uL (150-450); RED BLOOD COUNT 4.79 10^6/uL (4.35-5.55); RED CELL DISTRIBUTION WIDTH 13.3 % (11.5-14.0); SEGMENTED NEUTROPHILS % (AUTO) 77.9 % (42-78); TOTAL CELLS COUNTED % (AUTO) 100 %; WHITE BLOOD COUNT 14.9 10^3/uL (4.0-10.5)
[2017-06-04 13:59] LABS: ALANINE AMINOTRANSFERASE 31 U/L (21-72); ALBUMIN 4.6 g/dL (3.5-5.0); ALKALINE PHOSPHATASE 61 U/L (38-126); ANION GAP 10 (5-19); ASPARTATE AMINO TRANSFERASE 23 U/L (17-59); BILIRUBIN,DIRECT 0.2 mg/dL (0.0-0.4); BILIRUBIN,TOTAL 0.2 mg/dL (0.2-1.3); BLOOD UREA NITROGEN 18 mg/dL (7-20); CALCIUM 9.9 mg/dL (8.4-10.2); CARBON DIOXIDE 29 mmol/L (22-30); CHLORIDE 102 mmol/L (98-107); GLUCOSE 140 mg/dL (75-110); POTASSIUM 4.9 mmol/L (3.6-5.0); TOTAL PROTEIN 7.2 g/dL (6.3-8.2)
== END 2017-06-04 13:27 | disposition home or self-care (01) ==
LOC: ER 12:50
DX: R73.9 Hyperglycemia, unspecified (principal); D72.829 Elevated white blood cell count, unspecified; R10.9 Unspecified abdominal pain; R11.0 Nausea; F41.9 Anxiety disorder, unspecified; F17.210 Nicotine dependence, cigarettes, uncomplicated
CPT/HCPCS: 36415; 80053; 83690; 85025; 99284

== ENCOUNTER 2017-08-14 08:45 | Emergency (ER) | payer SELFPAY ==
[2017-08-14 09:31] LABS: ABSOLUTE EOSINOPHILS # (AUTO) 0.2 10^3/uL (0.0-0.6); ABSOLUTE MONOCYTES (AUTO) 0.5 10^3/uL (0.1-1.4); ABSOLUTE NEUT (AUTO) 12.4 10^3/uL (1.7-8.2); BASOPHILS % (AUTO) 0.2 % (0-2); EOSINOPHILS % (AUTO) 1.3 % (0-6); HEMATOCRIT 46.9 % (37.9-51.0); HEMOGLOBIN 15.9 g/dL (13.5-17.0); LYMPHOCYTES % (AUTO) 6.9 % (13-45); MEAN CORPUSCULAR HEMOGLOBIN 31.1 pg (27.0-33.4); MEAN CORPUSCULAR HGB CONC 33.9 g/dL (32.0-36.0); MEAN CORPUSCULAR VOLUME 92 fl (80-97); MONOCYTES % (AUTO) 3.5 % (3-13); PLATELET COUNT 341 10^3/uL (150-450); RED CELL DISTRIBUTION WIDTH 13.2 % (11.5-14.0); SEGMENTED NEUTROPHILS % (AUTO) 88.1 % (42-78); TOTAL CELLS COUNTED % (AUTO) 100 %; WHITE BLOOD COUNT 14.1 10^3/uL (4.0-10.5)
[2017-08-14 09:42] LABS: APPEARANCE,URINE CLEAR; BILIRUBIN,URINE NEGATIVE (NEGATIVE); COLOR,URINE YELLOW; GLUCOSE, URINE NEGATIVE (NEGATIVE); KETONES,URINE NEGATIVE (NEGATIVE); LEUKOCYTE ESTERASE,URINE NEGATIVE (NEGATIVE); NITRITE,URINE NEGATIVE (NEGATIVE); PROTEIN,URINE NEGATIVE (NEGATIVE); URINE SPECIFIC GRAVITY 1.026
[2017-08-14] MEDS ORDERED: NORMAL SALINE 1000 ML 1,000 ML IV ONE (09:58)
[2017-08-14] MEDS ORDERED: ONDANSETRON HCL INJ/PF 4 MG/2 ML SDV IV ONE (09:59)
[2017-08-14] MEDS ORDERED: FAMOTIDINE INJ/PF 20 MG/2 ML SDV IV ONE (09:59)
[2017-08-14 10:00] LABS: ALANINE AMINOTRANSFERASE 27 U/L (21-72); ALBUMIN 4.7 g/dL (3.5-5.0); ALKALINE PHOSPHATASE 78 U/L (38-126); ANION GAP 11 (5-19); ASPARTATE AMINO TRANSFERASE 32 U/L (17-59); BILIRUBIN,DIRECT 0.5 mg/dL (0.0-0.4); BILIRUBIN,TOTAL 0.8 mg/dL (0.2-1.3); BLOOD UREA NITROGEN 19 mg/dL (7-20); CARBON DIOXIDE 29 mmol/L (22-30); CHLORIDE 101 mmol/L (98-107); GLUCOSE 136 mg/dL (75-110); LIPASE 36.4 U/L (23-300); POTASSIUM 5.3 mmol/L (3.6-5.0); SODIUM 141.1 mmol/L (137-145); TOTAL PROTEIN 7.7 g/dL (6.3-8.2)
[2017-08-14] MEDS ORDERED: KETOROLAC TROMETHAMINE INJ/PF 30 MG/1 ML SDV IV ONE (10:00)
--- NOTE | 2017-08-14 10:01 | ER Document Report ---
ED General - General Chief Complaint: Nausea/Vomiting/Diarrhea Stated Complaint: VOMITING Time Seen by Provider: 08/14/17 09:12 Mode of Arrival: Ambulatory Information source: Patient Notes: 37-year-old male with a history of Whitten's esophagus, GERD, remote pancreatitis presents with complaint of nausea, vomiting, diarrhea. Patient states that his symptoms started 1 day prior to arrival. Patient reports 10 episodes of nonbilious, nonbloody emesis and 3-4 episodes of diarrhea that are also reported to be nonbloody or black. Patient complaining of mild epigastric tenderness. He states that this does not feel like his previous pancreatitis. He has had sick contacts at home with his and children with similar symptoms. Patient reports his previous pancreatitis was due to alcohol use which she will no longer uses. TRAVEL OUTSIDE OF THE [place] IN LAST 30 DAYS: No - HPI Onset: Yesterday Onset/Duration: Sudden Quality of pain: Stabbing Severity: Mild Associated symptoms: Diarrhea, Nausea, Vomiting. denies: Chest pain, Fever, Headache, Shortness of breath Exacerbated by: Denies Relieved by: Denies Similar symptoms previously: Yes Recently seen / treated by doctor: No - Related Data Allergies/Adverse Reactions: No Known Allergies Allergy (Verified 06/04/17 12:51) Past Medical History - General Information source: Patient - Social History Smoking Status: Current Every Day Smoker Chew tobacco use (# tins/day): No Frequency of alcohol use: None Drug Abuse: None Family History: Reviewed & Not Pertinent Patient has suicidal ideation: No Patient has homicidal ideation: No - Past Medical History Cardiac Medical History: Denies: Hx Coronary Artery Disease, Hx Heart Attack, Hx Hypertension Pulmonary Medical History: Denies: Hx Asthma, Hx Bronchitis, Hx COPD, Hx Pneumonia Neurological Medical History: Denies: Hx Cerebrovascular Accident, Hx Seizures Renal/ Medical History: Reports: Hx Kidney Stones. Denies: Hx Peritoneal Dialysis GI Medical History: Reports: Hx Gastroesophageal Reflux Disease Musculoskeltal Medical History: Denies Hx Arthritis - Immunizations Hx Diphtheria, Pertussis, Tetanus Vaccination: Yes - unk Review of Systems - Review of Systems Notes: Patient denies headache, fever, chills, chest pain, shortness of breath, dysuria , hematuria. He does admit to nausea, vomiting, diarrhea, epigastric abdominal pain and sick contacts. Physical Exam - Vital signs Vitals: Temp Pulse Resp BP Pulse Ox 97.8 F 68 18 119/71 95 08/14/17 08:50 08/14/17 08:50 08/14/17 08:50 08/14/17 08:50 08/14/17 08:50 Interpretation: Normal. No: Hypertensive, Tachycardic, Febrile - Notes Notes: PHYSICAL EXAMINATION: GENERAL: Well-appearing, well-nourished and in no acute distress. HEAD: Atraumatic, normocephalic. EYES: Pupils equal round and reactive to light, extraocular movements intact, sclera anicteric, conjunctiva are normal. ENT: Nares patent, oropharynx clear without exudates. Moist mucous membranes. NECK: Normal range of motion, supple without lymphadenopathy LUNGS: Breath sounds clear to auscultation bilaterally and equal. No wheezes rales or rhonchi. HEART: Regular rate and rhythm without murmurs ABDOMEN: Soft, mild epigastric tenderness, nondistended abdomen. No guarding, no rebound. No masses appreciated. Negative Muro's. Musculoskeletal: Normal range of motion, no pitting or edema. No cyanosis. NEUROLOGICAL: Cranial nerves grossly intact. Normal speech, normal gait. Normal sensory, motor exams PSYCH: Normal mood, normal affect. SKIN: Warm, Dry, normal turgor, no rashes or lesions noted. Course - Re-evaluation Re-evalutation: Laboratory 08/14/17 08/14/17 08/14/17 09:12 09:14 09:14 WBC 14.1 H RBC 5.10 Hgb 15.9 Hct 46.9 MCV 92 MCH 31.1 MCHC 33.9 RDW 13.2 Plt Count 341 Seg Neutrophils % 88.1 H Lymphocytes % 6.9 L Monocytes % 3.5 Eosinophils % 1.3 Basophils % 0.2 Absolute Neutrophils 12.4 H Absolute Lymphocytes 1.0 Absolute Monocytes 0.5 Absolute Eosinophils 0.2 Absolute Basophils 0.0 Sodium 141.1 Potassium 5.3 H Chloride 101 Carbon Dioxide 29 Anion Gap 11 BUN 19 Creatinine 0.87 Est GFR ( Amer) > 60 Est GFR (Non-Af Amer) > 60 Glucose 136 H Calcium 10.0 Total Bilirubin 0.8 Direct Bilirubin 0.5 H Neonat Total Bilirubin Not Reportable Neonat Direct Bilirubin Not Reportable Neonat Indirect Bili Not Reportable AST 32 ALT 27 Alkaline Phosphatase 78 Total Protein 7.7 Albumin 4.7 Lipase 36.4 Urine Color YELLOW Urine Appearance CLEAR Urine pH 7.0 Ur Specific [place] 1.026 Urine Protein NEGATIVE Urine Glucose (UA) NEGATIVE Urine Ketones NEGATIVE Urine Blood NEGATIVE Urine Nitrite NEGATIVE Urine Bilirubin NEGATIVE Urine Urobilinogen 2.0 H Ur Leukocyte Esterase NEGATIVE Urine WBC (Auto) 0 Urine RBC (Auto) 1 Urine Mucus (Auto) RARE Urine Ascorbic Acid NEGATIVE 08/14/17 10:07 37-year-old male with a history of Whitten's esophagus, GERD, remote pancreatitis presents with complaint of nausea, vomiting, diarrhea. Patient states that his symptoms started 1 day prior to arrival. Patient reports 10 episodes of nonbilious, nonbloody emesis and 3-4 episodes of diarrhea that are also reported to be nonbloody or black. Patient complaining of mild epigastric tenderness. He states that this does not feel like his previous pancreatitis. He has had sick contacts at home with his and children with similar symptoms. Patient reports his previous pancreatitis was due to alcohol use which she will no longer uses. Vital signs stable upon arrival. Patient is afebrile, normotensive and not hypoxic. He does not appear toxic or dehydrated. He is in no acute distress. Patient was administered IV fluids, Zofran, Pepcid. 08/14/17 11:51 She reevaluated and reports resolution of nausea and vomiting. He does report improvement of his pain. He does show a leukocytosis which can be seen in viral illness. No evidence of pancreatitis. Patient tolerating fluids prior to discharge home After performing a Medical Screening Examination, I estimate there is LOW risk for ACUTE APPENDICITIS, BOWEL OBSTRUCTION, ACUTE CHOLECYSTITIS, PERFORATED DIVERTICULITIS, INCARCERATED HERNIA, PANCREATITIS, TESTICULAR TORSION or PERFORATED ULCER, thus I consider the discharge disposition reasonable. Also, there is no evidence or peritonitis, sepsis, or toxicity. I have reevaluated this patient multiple times and no significant life threatening changes are noted. The patient and I have discussed the diagnosis and risks, and we agree with discharging home with close follow-up with the understanding that symptoms and presentations can change. We also discussed returning to the Emergency Department immediately if new or worsening symptoms occur. We have discussed the symptoms which are most concerning (e.g., bloody stool, fever, changing or worsening pain, intractable vomiting - standard verbal up date) that necessitate immediate return. 08/14/17 12:20 - Vital Signs Vital signs: Temp Pulse Resp BP Pulse Ox 98.5 F 63 14 118/70 98 08/14/17 11:14 08/14/17 11:14 08/14/17 11:14 08/14/17 11:14 08/14/17 11:14 - Laboratory Result Diagrams: 08/14/17 09:14 08/14/17 09:14 Laboratory results interpreted by me: 08/14/17 08/14/17 08/14/17 09:12 09:14 09:14 WBC 14.1 H Seg Neutrophils % 88.1 H Lymphocytes % 6.9 L Absolute Neutrophils 12.4 H Potassium 5.3 H Glucose 136 H Direct Bilirubin 0.5 H Urine Urobilinogen 2.0 H Discharge - Discharge Clinical Impression: Nausea vomiting and diarrhea Condition: Good Disposition: HOME, SELF-CARE Instructions: Diarrhea, Nonspecific ([facility]), Vomiting ([facility]) Additional Instructions: please return if you are unable to tolerate fluid, you vomit blood or your abdominal pain becomes worse. Prescriptions: Ondansetron [Zofran Odt 4 mg Tablet] 1 - 2 tab PO Q4HP PRN #10 tab.rapdis PRN Reason: Famotidine [Pepcid 40 mg Tablet] 40 mg PO DAILY #7 tablet
[2017-08-14 11:15] VITALS: BP 118/70
== END 2017-08-14 12:04 | disposition home or self-care (01) ==
LOC: ER 08:45
DX: R11.2 Nausea with vomiting, unspecified (principal); R19.7 Diarrhea, unspecified; D72.829 Elevated white blood cell count, unspecified; R10.13 Epigastric pain; R10.816 Epigastric abdominal tenderness; F17.200 Nicotine dependence, unspecified, uncomplicated; Z87.19 Personal history of other diseases of the digestive system
CPT/HCPCS: 99284; 96361; 96374; 96375; 36415; 83690; 85025; 80053; 81001; J1885; J2405; J7030; S0028

== ENCOUNTER 2018-08-19 15:04 | Emergency (ER) | payer SELFPAY ==
[2018-08-19] MEDS ORDERED: TETRACAINE HCL 0.5% OPH SOLN 4 ML OU ONE (15:55)
[2018-08-19] MEDS ORDERED: POLYMYXIN B SULFATE/TMP OPH SOLN (10 ML/ER DISP) OU PRN (15:56)
--- NOTE | 2018-08-19 15:57 | ER Document Report ---
HPI - HPI Time Seen by Provider: 08/19/18 15:49 Pain Level: 1 Context: Patient is a 38-year-old male who presents emergency permit with a chief complaint of bilateral eye redness, and upper respiratory symptoms. He states that he has had his symptoms for the past 8 days. He was seen by urgent care and given Vigamox for pinkeye, but has not seen any improvement. He states that he has had a fever and a cough. His oxygen saturation in the emergency department is 95%. He is a current every day smoker. - CONSTITUTIONAL Constitutional: DENIES: Fever, Chills - EENT EENT: REPORTS: Sore Throat, Nasal Drainage-Clear, Congestion, Eye problems - Bilateral redness, pain - NEURO Neurology: DENIES: Headache - CARDIOVASCULAR Cardiovascular: DENIES: Chest pain - RESPIRATORY Respiratory: REPORTS: Coughing. DENIES: Trouble Breathing - MUSCULOSKELETAL Musculoskeletal: DENIES: Extremity pain - DERM Skin Color: Normal Skin Problems: None Past Medical History - General Information source: Patient - Social History Smoking Status: Current Every Day Smoker Family History: Reviewed & Not Pertinent - Past Medical History Cardiac Medical History: Denies: Hx Coronary Artery Disease, Hx Heart Attack, Hx Hypertension Pulmonary Medical History: Denies: Hx Asthma, Hx Bronchitis, Hx COPD, Hx Pneumonia Neurological Medical History: Denies: Hx Cerebrovascular Accident, Hx Seizures Renal/ Medical History: Reports: Hx Kidney Stones. Denies: Hx Peritoneal Dialysis GI Medical History: Reports: Hx Gastroesophageal Reflux Disease Musculoskeletal Medical History: Denies Hx Arthritis - Immunizations Hx Diphtheria, Pertussis, Tetanus Vaccination: Yes - unk Vertical Provider Document - CONSTITUTIONAL Agree With Documented VS: Yes Exam Limitations: No Limitations - INFECTION CONTROL TRAVEL OUTSIDE OF THE [place] IN LAST 30 DAYS: No - HEENT HEENT: Atraumatic, Normocephalic - NECK Neck: Normal Inspection - RESPIRATORY Respiratory: Breath Sounds Normal, No Respiratory Distress. negative: Rales, R honchi, Wheezing - CARDIOVASCULAR Cardiovascular: Regular Rate, Regular Rhythm Pulses: Normal: Radial - MUSCULOSKELETAL/EXTREMETIES Musculoskeletal/Extremeties: FROM, Non-Tender - NEURO Level of Consciousness: Awake, Alert, Appropriate Motor/Sensory: No Motor Deficit, No Sensory Deficit, No Pronator Drift - DERM Integumentary: Warm, Dry Course - Re-evaluation Re-evalutation: 08/19/18 16:27 Patient does have some corneal irritation noted to his eyes via Reynaga lamp exam. I do not suspect a globe rupture. Negative Elma sign. I will switch his antibiotics eyedrops to Polytrim eyedrops. I will also given Acular eyedrops to help with his eye pain. He is requesting not to be sent for a chest x-ray, although his oxygen saturation is 95%. I told him that it would rule out pneumonia. Does not have insurance and is worried about the cost. He is also refusing to be tested for the flu. He may be at the end of having an upper respiratory viral infection. I have discussed this with him. He will be sent home with Viraj Corey to help with his cough. Verbal discharge instructions were given to the patient. They verbalized understanding. They are stable for discharge. - Vital Signs Vital signs: Temp Pulse Resp BP Pulse Ox 99.0 F 72 16 124/73 95 08/19/18 15:15 08/19/18 15:15 08/19/18 15:15 08/19/18 15:15 08/19/18 15:15 Discharge - Discharge Clinical Impression: Corneal irritation of both eyes, Upper respiratory infection, viral Conjunctivitis Qualifiers: Conjunctivitis type: acute Acute conjunctivitis type: unspecified Laterality: bilateral Qualified Code(s): H10.33 - Unspecified acute conjunctivitis, bilateral Condition: Stable Disposition: HOME, SELF-CARE Instructions: Conjunctivitis ([facility]), Eyedrop Use ([facility]), Upper Respiratory Illness ([facility]) Additional Instructions: Your seen today in the emergency department for bilateral eye pain. You have irritation noted to both of your eyes. Please stop taking the antibiotic eyedrops you are on right now. You have been prescribed Polytrim eyedrops place 1 drop to each eye every 3 hours while awake. You have also been prescribed Acular eyedrops, for pain. Use as directed. He also have an upper respiratory viral infection that will resolve on its own. You have been given benzonatate, education to help with your cough. Use as directed. If you have difficulty breathing, shortness of breath, or have any symptoms that are worrisome to you, please return to the emergency department. Prescriptions: Benzonatate [Tessalon Perle 100 mg Capsule] 100 mg PO Q8HP PRN #40 cap PRN Reason: Ketorolac Tromethamine [Acular] 1 drop OU TIDP PRN #5 ml PRN Reason:
[2018-08-19 16:43] VITALS: BP 116/75
== END 2018-08-19 16:41 | disposition home or self-care (01) ==
LOC: ER 15:04
DX: H10.33 Unspecified acute conjunctivitis, bilateral (principal); J06.9 Acute upper respiratory infection, unspecified; B97.89 Other viral agents as the cause of diseases classified elsewhere; H57.13 Ocular pain, bilateral; R50.9 Fever, unspecified; R05 Cough; J02.9 Acute pharyngitis, unspecified; F17.200 Nicotine dependence, unspecified, uncomplicated
CPT/HCPCS: 99282; J3490 ×2

== ENCOUNTER 2018-09-06 08:38 | Emergency (ER) | payer SELFPAY ==
[2018-09-06] MEDS ORDERED: ONDANSETRON HCL INJ/PF 4 MG/2 ML SDV IV ONE (09:15)
--- NOTE | 2018-09-06 09:25 | ER Document Report ---
ED General - General Chief Complaint: Abdominal Pain Stated Complaint: ABDOMINAL PAIN Time Seen by Provider: 09/06/18 09:16 TRAVEL OUTSIDE OF THE [place] IN LAST 30 DAYS: No - HPI Notes: Patient is a 38-year-old male with a history of alcoholic pancreatitis who presents emergency department complaining of epigastric abdominal pain with associated nausea vomiting that began earlier this morning. Patient states that this mimics previous pain of his pancreatitis. Patient states that he did have a lot of alcohol yesterday. Patient states that this is flared up his pancreas in the past, but not over the past few years. Patient states that the pain will occasionally radiate to his back. Patient states that he is still urinating normally and having normal bowel movements. No surgical history to his abdomen. No other concerns or complaints. Denies any headache, fever, URI, sore throat, chest pain, palpitations, syncope, cough, shortness of breath, wheeze, dyspnea, diarrhea, urinary retention, dysuria, hematuria, or rash. - Related Data Allergies/Adverse Reactions: No Known Allergies Allergy (Verified 06/04/17 12:51) Past Medical History - Social History Smoking Status: Never Smoker Frequency of alcohol use: 10 drinks daily Drug Abuse: None Family History: Reviewed & Not Pertinent Patient has suicidal ideation: No Patient has homicidal ideation: No - Past Medical History Cardiac Medical History: Denies: Hx Coronary Artery Disease, Hx Heart Attack, Hx Hypertension Pulmonary Medical History: Denies: Hx Asthma, Hx Bronchitis, Hx COPD, Hx Pneumonia Neurological Medical History: Denies: Hx Cerebrovascular Accident, Hx Seizures Renal/ Medical History: Reports: Hx Kidney Stones. Denies: Hx Peritoneal Dialysis GI Medical History: Reports: Hx Gastroesophageal Reflux Disease Musculoskeletal Medical History: Denies Hx Arthritis Psychiatric Medical History: Reports: Hx Depression - Immunizations Hx Diphtheria, Pertussis, Tetanus Vaccination: Yes - unk Review of Systems - Review of Systems -: Yes All other systems reviewed and negative Physical Exam - Vital signs Vitals: Temp Pulse Resp BP Pulse Ox 98.0 F 72 20 159/100 H 94 09/06/18 08:47 09/06/18 08:47 09/06/18 08:47 09/06/18 08:47 09/06/18 08:47 - Notes Notes: PHYSICAL EXAMINATION: GENERAL: Well-appearing, well-nourished and in no acute distress. HEAD: Atraumatic, normocephalic. EYES: Pupils equal round and reactive to light, extraocular movements intact, sclera anicteric, conjunctiva are normal. ENT: Nares patent and without discharge. oropharynx clear without exudates. No tonsilar hypertrophy or erythema. Moist mucous membranes. NECK: Normal range of motion, supple without lymphadenopathy LUNGS: Breath sounds clear to auscultation bilaterally and equal. No wheezes rales or rhonchi. HEART: Regular rate and rhythm without murmurs, rubs, gallops. ABDOMEN: Soft, nondistended abdomen. No guarding, no rebound. Normal bowel sounds present. No CVA tenderness bilaterally. + tenderness RUQ and epigastrum to palp. Musculoskeletal: FROM to passive/active. Strength 5+/5. Extremities: No cyanosis, clubbing, or edema b/l. Peripheral pulses 2+. Capillary refill less than 3 seconds. NEUROLOGICAL: Normal speech, normal gait. PSYCH: Normal mood, normal affect. SKIN: Warm, Dry, normal turgor, no rashes or lesions noted. Course - Re-evaluation Re-evalutation: 09/06/18 12:55 Patient is an afebrile, well-hydrated, 38-year-old male who presents to the emergency apartment with epigastric abdominal pain and probable pancreatitis. Vitals are currently acceptable without significant tachycardia, tachypnea, or hypoxia. PE is otherwise unremarkable. Patient is currently nontoxic-appearing and is able to tolerate some clear liquids at this time without any emesis. Patient states he is feeling a little bit better, but does not want any further imaging performed. Patient did have an ultrasound which showed gallbladder sludge without evidence of cholecystitis. His CBC and CMP are unremarkable otherwise. Lipase elevated. I did review CT imaging with the patient to further evaluate for pancreatitis which she has declined. Patient states that he has had pink otitis in the past and does not want to be admitted to the hospital as well. He has done clear liquid diets at home because he has some pain medicine to help. I reviewed the risk and benefit of incomplete work-up and discharged home versus admission including the possibility of worsening symptoms and . Patient has verbalized understanding of this and would like to sign out AGAINST MEDICAL ADVICE. Patient to recheck with his PCM in 2 to 3 days. Return to the ED with any other worsening/concerning symptoms. Patient is in agreement. - Vital Signs Vital signs: Temp Pulse Resp BP Pulse Ox 98.0 F 72 20 159/100 H 94 09/06/18 08:47 09/06/18 08:47 09/06/18 08:47 09/06/18 08:47 09/06/18 08:47 - Laboratory Result Diagrams: 09/06/18 09:54 09/06/18 09:54 Laboratory results interpreted by me: 09/06/18 09/06/18 09:54 09:54 WBC 11.9 H Absolute Neutrophils 9.3 H Glucose 123 H Lipase 643.9 H Discharge - Discharge Clinical Impression: Epigastric abdominal pain Pancreatitis Qualifiers: Chronicity: acute Pancreatitis type: alcohol induced Acute pancreatitis comp lication: unspecified Qualified Code(s): K85.20 - Alcohol induced acute pancreatitis without necrosis or infection Condition: Stable Disposition: AGAINST MEDICAL ADVICE Additional Instructions: As reviewed, you have elected to sign out AGAINST MEDICAL ADVICE. The worst case scenario includes worsening symptoms and/or unfounded specific cause of your symptoms that could result in worsening illness and even . Do not hesitate to return for any reason. He also have gallbladder sludge without evidence of cholecystitis at this time. Schedule an appointment with general surgery for further evaluation. Maintain adequate fluid and food intake Clear liquid diet Zofran as needed tylenol/Motrin if needed Monitor for any worsening symptoms Make sure you are staying hydrated enough to urinate and have normal BM's Recheck with your PCM in 2-3 days Consider consult with Gastroenterology/general surgery for ongoing/worsening symptoms Return to the ED with any worsening symptoms and/or development of fever, headache, chest pain, palpitations, syncope, shortness of breath, trouble breathing, abdominal pain, n/v/d, blood in stool/urine, weakness, or other worsening symptoms that are concerning to you. Prescriptions: Morphine Sulfate [Morphine Ir 15 Mg Tablet] 15 mg PO TID #12 tablet Omeprazole 20 mg PO DAILY #10 tablet. Ondansetron [Zofran Odt 4 mg Tablet] 1 - 2 tab PO Q4H PRN #15 tab.rapdis PRN Reason: For Nausea/Vomiting Forms: Elevated Blood Pressure Referrals: CEE ALEXANDER MD [ACTIVE STAFF] - Follow up as needed ANGY FAUST MD [ACTIVE STAFF] - Follow up as needed KULDIP MIXON MD [ACTIVE STAFF] - Follow up as needed
[2018-09-06] MEDS ORDERED: MORPHINE SULFATE 10 MG/ML INJ IV ONE (09:37)
[2018-09-06] MEDS ORDERED: KETOROLAC TROMETHAMINE INJ/PF 30 MG/1 ML SDV IV ONE (09:37)
[2018-09-06 10:12] LABS: ABSOLUTE BASOPHILS # (AUTO) 0.1 10^3/uL (0.0-0.2); ABSOLUTE EOSINOPHILS # (AUTO) 0.3 10^3/uL (0.0-0.6); ABSOLUTE LYMPHOCYTES (AUTO) 1.7 10^3/uL (0.5-4.7); ABSOLUTE MONOCYTES (AUTO) 0.6 10^3/uL (0.1-1.4); ABSOLUTE NEUT (AUTO) 9.3 10^3/uL (1.7-8.2); BASOPHILS % (AUTO) 0.5 % (0-2); EOSINOPHILS % (AUTO) 2.5 % (0-6); HEMATOCRIT 42.5 % (37.9-51.0); HEMOGLOBIN 14.3 g/dL (13.5-17.0); LYMPHOCYTES % (AUTO) 14.5 % (13-45); MEAN CORPUSCULAR HEMOGLOBIN 30.7 pg (27.0-33.4); MEAN CORPUSCULAR HGB CONC 33.5 g/dL (32.0-36.0); MEAN CORPUSCULAR VOLUME 92 fl (80-97); MONOCYTES % (AUTO) 4.6 % (3-13); PLATELET COUNT 366 10^3/uL (150-450); RED BLOOD COUNT 4.64 10^6/uL (4.35-5.55); RED CELL DISTRIBUTION WIDTH 13.9 % (11.5-14.0); SEGMENTED NEUTROPHILS % (AUTO) 77.9 % (42-78); TOTAL CELLS COUNTED % (AUTO) 100 %; WHITE BLOOD COUNT 11.9 10^3/uL (4.0-10.5)
[2018-09-06 10:42] LABS: ALANINE AMINOTRANSFERASE 24 U/L (21-72); ALBUMIN 4.2 g/dL (3.5-5.0); ALKALINE PHOSPHATASE 74 U/L (38-126); ANION GAP 12 (5-19); ASPARTATE AMINO TRANSFERASE 22 U/L (17-59); BILIRUBIN,DIRECT 0.2 mg/dL (0.0-0.4); BILIRUBIN,TOTAL 0.3 mg/dL (0.2-1.3); BLOOD UREA NITROGEN 14 mg/dL (7-20); CALCIUM 10.1 mg/dL (8.4-10.2); CARBON DIOXIDE 25 mmol/L (22-30); CHLORIDE 106 mmol/L (98-107); GLUCOSE 123 mg/dL (75-110); LIPASE 643.9 U/L (23-300); POTASSIUM 4.5 mmol/L (3.6-5.0); SODIUM 143.2 mmol/L (137-145); TOTAL PROTEIN 7.3 g/dL (6.3-8.2)
[2018-09-06] MEDS: NORMAL SALINE 1000 ML 1,000 ML IV PRN ×2 (11:30→11:33)
--- NOTE | 2018-09-06 12:10 | RADIOLOGY REPORT (SQ) ---
EXAM DESCRIPTION: U/S ABDOMEN LIMITED W/O DOP COMPLETED DATE/TIME: 09/06/2018 11:31 am REASON FOR STUDY: ruq epigastric pain, ?pancreatitis COMPARISON: 09/14/2016, 06/14/2016, CT abdomen pelvis, 08/20/2013 TECHNIQUE: Dynamic and static grayscale images acquired of the abdomen and recorded on PACS. Additio nal selected color Doppler and spectral images recorded. LIMITATIONS: None. FINDINGS: PANCREAS: No masses. Visualized pancreatic duct normal caliber. LIVER: No masses. Cystic lesion of the anterior right lobe of the liver as seen on prior CT dated . Echotexture normal. LIVER VASCULATURE: Normal directional flow of the main portal vein and hepatic veins. GALLBLADDER: No stones. Sludge in the gallbladder. Normal wall thickness. No pericholecystic fluid. ULTRASOUND-DETECTED AYALA'S SIGN: Negative. INTRAHEPATIC DUCTS AND COMMON DUCT: CBD and intrahepatic ducts normal caliber. No filling defects. INFERIOR VENA CAVA: Normal flow. AORTA: No aneurysm. RIGHT KIDNEY: Normal size. Normal echogenicity. No solid or suspicious masses. No hydronephrosis. No calcifications. PERITONEAL AND RIGHT PLEURAL SPACE: No ascites or effusions. OTHER: No other significant findings. IMPRESSION: 1. Gall sludge in the gallbladder. No gallbladder wall thickening. No pericholecystic fluid. No biliary ductal dilation. 2. No ultrasound abnormality of the pancreas. Please note that CT or MRI are the test of choice for evaluation of pancreatitis. TECHNICAL DOCUMENTATION: JOB ID: [id number] [employer]- All Rights Reserved Reading location - IP/workstation name: [email or web address]
[2018-09-06] MEDS ORDERED: HYDROMORPHONE HCL INJ/PF 2 MG/ML AMPULE IV ONE (12:35)
[2018-09-06] MEDS ORDERED: NORMAL SALINE 1000 ML 1,000 ML IV ONE (12:37)
[2018-09-06 14:10] VITALS: BP 127/78
== END 2018-09-06 14:00 | disposition left against medical advice (07) ==
LOC: ER 08:38
DX: K85.20 Alcohol induced acute pancreatitis without necrosis or infection (principal); K82.8 Other specified diseases of gallbladder; R10.13 Epigastric pain; R11.2 Nausea with vomiting, unspecified; Z87.19 Personal history of other diseases of the digestive system; Z87.442 Personal history of urinary calculi; R10.811 Right upper quadrant abdominal tenderness; R10.816 Epigastric abdominal tenderness
CPT/HCPCS: 99284; 96361; 96374; 96375; 36415; 83690; 85025; 80053; 76705; J1885; J2270; J1170; J2405; J7030

== ENCOUNTER 2019-08-16 09:43 | Inpatient (IN) | payer MEDICAID, OTHER ==
[2019-08-16] MEDS ORDERED: NORMAL SALINE 1000 ML 1,000 ML IV ONE (10:14)
[2019-08-16] MEDS ORDERED: HYDROMORPHONE HCL INJ/PF 2 MG/ML AMPULE IV ONE ×2 (10:14→11:25)
[2019-08-16] MEDS ORDERED: ONDANSETRON HCL INJ/PF 4 MG/2 ML SDV IV ONE (10:14)
--- NOTE | 2019-08-16 10:16 | ER Document Report ---
ED GI/ - General Chief Complaint: Abdominal Pain Stated Complaint: UPPER ABDOMINAL PAIN Time Seen by Provider: 08/16/19 09:52 Mode of Arrival: Ambulatory Information source: Patient Notes: Patient presents with epigastric abdominal tenderness that started this morning. Patient has a history of pancreatitis and does continue to drink about a 12 pack every other day. Patient last drank alcohol yesterday evening. Patient does report nausea vomiting x4 episodes today. Patient denies any fever or urinary symptoms. Patient does report that abdominal pain does radiate through to his back. TRAVEL OUTSIDE OF THE [place] IN LAST 30 DAYS: No - HPI Patient complains to provider of: Abdominal pain, Vomiting Onset: This morning Timing/Duration: Persistent Quality of pain: Sharp Pain Level: 5 Location: Epigastric Sexual history: Active Associated symptoms: Nausea, Vomiting. denies: Chest pain, Fever, Urinary hesitancy, Urinary frequency, Urinary retention, Urinary urgency Exacerbated by: Denies Relieved by: Denies Similar symptoms previously: Yes Recently seen / treated by doctor: No - Related Data Allergies/Adverse Reactions: No Known Allergies Allergy (Verified 06/04/17 12:51) Home Medications: Zoloft, Gabapentin Past Medical History - General Information source: Patient - Social History Smoking Status: Current Every Day Smoker Frequency of alcohol use: Heavy Drug Abuse: None Occupation: [employer] Lives with: Family Family History: Reviewed & Not Pertinent Patient has suicidal ideation: No Patient has homicidal ideation: No - Past Medical History Cardiac Medical History: Denies: Hx Coronary Artery Disease, Hx Heart Attack, Hx Hypertension Pulmonary Medical History: Denies: Hx Asthma, Hx Bronchitis, Hx COPD, Hx Pneumonia Neurological Medical History: Denies: Hx Cerebrovascular Accident, Hx Seizures Renal/ Medical History: Reports: Hx Kidney Stones. Denies: Hx Peritoneal Dialysis GI Medical History: Reports: Hx Gastroesophageal Reflux Disease, Hx Pancreatitis Musculoskeletal Medical History: Denies Hx Arthritis Psychiatric Medical History: Reports: Hx Depression Surgical Hx: Negative - Immunizations Hx Diphtheria, Pertussis, Tetanus Vaccination: Yes - unk Review of Systems - Review of Systems Constitutional: Diaphoresis. denies: Fever, Recent illness EENT: No symptoms reported Cardiovascular: No symptoms reported. denies: Chest pain Respiratory: No symptoms reported. denies: Cough, Short of breath Gastrointestinal: Abdominal pain, Nausea, Vomiting. denies: Diarrhea Genitourinary: No symptoms reported. denies: Dysuria, Flank pain Male Genitourinary: No symptoms reported Musculoskeletal: Back pain Skin: No symptoms reported Hematologic/Lymphatic: No symptoms reported Neurological/Psychological: No symptoms reported Physical Exam - Vital signs Vitals: Temp Pulse Resp BP Pulse Ox 97.9 F 73 16 148/99 H 96 08/16/19 09:47 08/16/19 09:47 08/16/19 09:47 08/16/19 09:47 08/16/19 09:47 - General General appearance: Alert In distress: Mild - HEENT Head: Normocephalic Eyes: Normal Conjunctiva: Normal Nasal: Normal Mouth/Lips: Normal Mucous membranes: Normal Neck: Normal, Supple. No: Lymphadenopathy - Respiratory Respiratory status: No respiratory distress Chest status: Nontender Breath sounds: Normal. No: Rales, Rhonchi, Stridor, Wheezing Chest palpation: Normal - Cardiovascular Rhythm: Regular Heart sounds: S1 appreciated, S2 appreciated - Abdominal Inspection: Normal Distension: No distension Bowel sounds: Normal Tenderness: Tender - Upper abdominal tenderness, epigastric tenderness, Guarding Organomegaly: No organomegaly - Back Back: Tender - Thoracic tenderness. No: Vertebra tenderness - Extremities General upper extremity: Normal inspection, Nontender, Normal strength General lower extremity: Normal inspection, Nontender, Normal strength - Neurological Neuro grossly intact: Yes Cognition: Normal [place] Coma Scale Eye Opening: Spontaneous Dee Coma Scale Verbal: Oriented Dee Coma Scale Motor: Obeys Commands [place] Coma Scale Total: 15 - Psychological Associated symptoms: Normal affect, Normal mood - Skin Skin Temperature: Warm Skin Moisture: Diaphoretic Skin Color: Normal Course - Re-evaluation Re-evalutation: 08/16/19 11:27 Patient continues with epigastric tenderness and is requesting additional pain medication. Nausea is resolved at this time after the medication. Discussed results of patient's diagnostic test with him. Discussed concern about need for admission. Patient is agreeable with this plan of care. Consulted with hospitalist Dr. Mac regarding patient presentation and diagnostic evaluation. Recommends adding on CT scan but does agree to accept patient as an [facility] admission. - Vital Signs Vital signs: Temp Pulse Resp BP Pulse Ox 97.8 F 54 L 18 130/86 H 95 08/16/19 13:27 08/16/19 13:27 08/16/19 13:27 08/16/19 13:27 08/16/19 13:27 - Laboratory Result Diagrams: 08/16/19 09:50 08/16/19 09:50 Laboratory results interpreted by me: 08/16/19 08/16/19 09:50 09:50 WBC 18.6 H Absolute Neuts (auto) 14.4 H Carbon Dioxide 31 H Glucose 124 H Lipase 9265.3 H Labs- Entire Visit 08/16/19 08/16/19 09:50 09:50 WBC 18.6 H RBC 4.79 Hgb 15.2 Hct 44.0 MCV 92 MCH 31.7 MCHC 34.6 RDW 13.9 Plt Count 348 Lymph % (Auto) 14.4 Summers % (Auto) 5.1 Eos % (Auto) 2.9 Baso % (Auto) 0.3 Absolute Neuts (auto) 14.4 H Absolute Lymphs (auto) 2.7 Absolute Monos (auto) 0.9 Absolute Eos (auto) 0.5 Absolute Basos (auto) 0.1 Seg Neutrophils % 77.3 Sodium 140.8 Potassium 4.7 Chloride 105 Carbon Dioxide 31 H Anion Gap 5 BUN 13 Creatinine 0.84 Est GFR ( Amer) > 60 Est GFR (MDRD) Non-Af > 60 Glucose 124 H Calcium 10.2 Total Bilirubin 0.2 Direct Bilirubin 0.0 Neonat Total Bilirubin Not Reportable Neonat Direct Bilirubin Not Reportable Neonat Indirect Bili Not Reportable AST 27 ALT 16 Alkaline Phosphatase 91 Total Protein 7.9 Albumin 4.8 Lipase 9265.3 H - Diagnostic Test Radiology reviewed: Reports reviewed - EKG Interpretation by Dc EKG shows normal: Sinus rhythm Rate: Normal When compared to previous EKG there are: No significant change Additional EKG results interpreted by me: 08/16/19 11:20 QTc 413 Discharge - Discharge Clinical Impression: Alcohol abuse Acute pancreatitis Qualifiers: Pancreatitis type: alcohol induced Acute pancreatitis complication: unspecified Qualified Code(s): K85.20 - Alcohol induced acute pancreatitis without necrosis or infection Condition: Stable Disposition: ADMITTED INPATIENT Admitting Provider: Estefania (Hospitalist) Unit Admitted: [facility]
[2019-08-16 10:19] LABS: ABSOLUTE BASOPHILS # (AUTO) 0.1 10^3/uL (0.0-0.2); ABSOLUTE EOSINOPHILS # (AUTO) 0.5 10^3/uL (0.0-0.6); ABSOLUTE LYMPHOCYTES (AUTO) 2.7 10^3/uL (0.5-4.7); ABSOLUTE MONOCYTES (AUTO) 0.9 10^3/uL (0.1-1.4); ABSOLUTE NEUT (AUTO) 14.4 10^3/uL (1.7-8.2); BASOPHILS % (AUTO) 0.3 % (0-2); EOSINOPHILS % (AUTO) 2.9 % (0-6); HEMOGLOBIN 15.2 g/dL (13.5-17.0); LYMPHOCYTES % (AUTO) 14.4 % (13-45); MEAN CORPUSCULAR HEMOGLOBIN 31.7 pg (27.0-33.4); MEAN CORPUSCULAR HGB CONC 34.6 g/dL (32.0-36.0); MEAN CORPUSCULAR VOLUME 92 fl (80-97); MONOCYTES % (AUTO) 5.1 % (3-13); PLATELET COUNT 348 10^3/uL (150-450); RED BLOOD COUNT 4.79 10^6/uL (4.35-5.55); RED CELL DISTRIBUTION WIDTH 13.9 % (11.5-14.0); SEGMENTED NEUTROPHILS % (AUTO) 77.3 % (42-78); TOTAL CELLS COUNTED % (AUTO) 100 %; WHITE BLOOD COUNT 18.6 10^3/uL (4.0-10.5)
[2019-08-16 10:52] LABS: ALBUMIN 4.8 g/dL (3.5-5.0); ALKALINE PHOSPHATASE 91 U/L (38-126); ANION GAP 5 (5-19); ASPARTATE AMINO TRANSFERASE 27 U/L (17-59); BILIRUBIN,TOTAL 0.2 mg/dL (0.2-1.3); BLOOD UREA NITROGEN 13 mg/dL (7-20); CALCIUM 10.2 mg/dL (8.4-10.2); CARBON DIOXIDE 31 mmol/L (22-30); CHLORIDE 105 mmol/L (98-107); GLUCOSE 124 mg/dL (75-110); POTASSIUM 4.7 mmol/L (3.6-5.0); TOTAL PROTEIN 7.9 g/dL (6.3-8.2)
--- NOTE | 2019-08-16 11:01 | RADIOLOGY REPORT (SQ) ---
EXAM DESCRIPTION: U/S ABDOMEN LIMITED W/O DOP IMAGES COMPLETED DATE/TIME: 08/16/2019 10:51 am REASON FOR STUDY: upper abd pain, hx pancreatitis COMPARISON: 09/06/2018. TECHNIQUE: Dynamic and static grayscale images acquired of the abdomen and recorded on PACS. Andreo pierre selected color Doppler and spectral images recorded. LIMITATIONS: None. FINDINGS: PANCREAS: No masses. Visualized pancreatic duct normal caliber. LIVER: No masses. Echotexture normal. LIVER VASCULATURE: Normal directional flow of the main portal vein and hepatic veins. GALLBLADDER: No stones. Normal wall thickness. No pericholecystic fluid. ULTRASOUND-DETECTED AYALA'S SIGN: Negative. INTRAHEPATIC DUCTS AND COMMON DUCT: CBD and intrahepatic ducts normal caliber. No filling defects. INFERIOR VENA CAVA: Normal flow. AORTA: No aneurysm. RIGHT KIDNEY: Normal size. Normal echogenicity. No solid or suspicious masses. No hydronephrosis. No calcifications. PERITONEAL AND RIGHT PLEURAL SPACE: No ascites or effusions. OTHER: No other significant findings. IMPRESSION: NORMAL RIGHT UPPER QUADRANT ULTRASOUND. TECHNICAL DOCUMENTATION: JOB ID: [id number] [employer]- All Rights Reserved Reading location - IP/workstation name: [email or web address]
[2019-08-16] MEDS ORDERED: ACETAMINOPHEN 325 MG TABLET PO PRN (11:46)
[2019-08-16] MEDS ORDERED: LORAZEPAM INJ 2 MG/1 ML VIAL IV PRN (11:50)
[2019-08-16] MEDS ORDERED: MORPHINE SULFATE 10 MG/ML INJ IV PRN (11:50)
[2019-08-16] MEDS ORDERED: HYDRALAZINE HCL INJ/PF 20 MG/1 ML SDV IV PRN (11:53)
--- NOTE | 2019-08-16 12:04 | PDOC H&P ---
History of Present Illness Patient complains of: Sudden onset of abdominal pain associated with nausea vomiting from this morning. History of Present Illness: ALBINA GARCIAS is a 39 year old male with history of alcohol abuse, history of previous episodes of pancreatitis came to the emergency room with complaints of severe abdominal pain of sudden onset associated with nausea and vomiting started this morning. He admitted drinking heavily lately. Usually drinks 12 pack of beer on daily basis. He is refusing CT abdominal pelvis and states he cannot afford the testing because he does not have any insurance. Lipase level was elevated in the ER. To admit him in the IMCU for further management. Past Medical History Cardiac Medical History: Denies: Coronary Artery Disease, Myocardial Infarction, Hypertension Pulmonary Medical History: Denies: Asthma, Bronchitis, Chronic Obstructive Pulmonary Disease (COPD), Pneumonia Neurological Medical History: Denies: Seizures Endocrine Medical History: Reports: None Renal/ Medical History: Reports: None Malignancy Medical History: Reports: None GI Medical History: Reports: Gastroesophageal Reflux Disease Musculoskeltal Medical History: Denies: Arthritis Psychiatric Medical History: Reports: Depression Hematology: Denies: Anemia Past Surgical History Past Surgical History: Reports: None Social History Lives with: Family Smoking Status: Current Every Day Smoker Electronic Cigarette use?: No Frequency of Alcohol Use: None Hx Recreational Drug Use: Yes Drugs: Marijuana Hx Prescription Drug Abuse: No - Advance Directive Resuscitation Status: Full Code Family History Family History: Reviewed & Not Pertinent Parental Family History Reviewed: Yes - Family history of hypertension Children Family History Reviewed: Yes Sibling(s) Family History Reviewed.: Yes Medication/Allergy Home Medications: Omeprazole 40 mg PO DAILY 02/16/19 Sertraline HCl [Zoloft] 100 mg PO DAILY 02/16/19 Acetaminophen [Tylenol 650 mg Supp] 650 mg TX Q4HP PRN supp.rect 02/18/19 Diazepam [Valium 5 mg Tablet] 5 mg PO QIDP PRN #12 tablet 02/18/19 Folic Acid [Folvite 1 mg Tablet] 1 mg PO DAILY #90 tablet 02/18/19 Multivitamin [Tab-A-Chante (Multiple Vitamin) Tablet] 1 tab PO DAILY #90 tablet 02/18/19 Ondansetron [Zofran Odt 4 mg Tablet] 1 - 2 tab PO Q4HP PRN #20 tab.rapdis 02/18/19 Oxycodone HCl/Acetaminophen [Percocet 5-325 mg Tablet] 1 - 2 tab PO Q6HP PRN #20 tablet 02/18/19 Thiamine HCl [Thiamine 100 mg Tablet] 100 mg PO DAILY #90 tablet 02/18/19 Allergies/Adverse Reactions: No Known Allergies Allergy (Verified 06/04/17 12:51) Review of Systems Constitutional: ABSENT: fatigue, fever(s), headache(s), night sweats, weakness Ears: ABSENT: hearing changes Nose, Mouth, and Throat: ABSENT: sore throat Cardiovascular: ABSENT: palpitations Respiratory: ABSENT: dyspnea, hemoptysis Gastrointestinal: PRESENT: abdominal pain, nausea, vomiting. ABSENT: constipation, diarrhea Genitourinary: ABSENT: dysuria, hematuria Neurological: ABSENT: abnormal gait, abnormal speech, confusion, dizziness, focal weakness, syncope Psychiatric: ABSENT: anxiety, depression, homidical ideation, suicidal ideation Physical Exam Vital Signs: Temp Pulse Resp BP Pulse Ox 97.9 F 73 16 148/99 H 96 08/16/19 09:47 08/16/19 09:47 08/16/19 09:47 08/16/19 09:47 08/16/19 09:47 Intake & Output 08/15/19 08/16/19 08/17/19 06:59 06:59 06:59 Weight 79.9 kg General appearance: PRESENT: mild distress, well-developed, well-nourished Head exam: PRESENT: atraumatic Eye exam: PRESENT: PERRLA Ear exam: PRESENT: normal external ear exam Mouth exam: PRESENT: neck supple Teeth exam: PRESENT: poor dentation Neck exam: ABSENT: carotid bruit, JVD, lymphadenopathy, thyromegaly Respiratory exam: PRESENT: decreased breath sounds Cardiovascular exam: PRESENT: RRR. ABSENT: diastolic murmur, rubs, systolic murmur GI/Abdominal exam: PRESENT: normal bowel sounds, soft. ABSENT: distended, guarding, mass, organolmegaly, rebound, tenderness Rectal exam: PRESENT: deferred Extremities exam: PRESENT: full ROM. ABSENT: calf tenderness, clubbing, pedal edema Neurological exam: PRESENT: alert, awake, oriented to person, oriented to place, oriented to time, oriented to situation, CN II-XII grossly intact. ABSENT: motor sensory deficit Psychiatric exam: PRESENT: appropriate affect, normal mood. ABSENT: homicidal ideation, suicidal ideation Results Laboratory Results: 08/16/19 09:50 08/16/19 09:50 08/16/19 08/16/19 09:50 09:50 WBC 18.6 H RBC 4.79 Hgb 15.2 Hct 44.0 MCV 92 MCH 31.7 MCHC 34.6 RDW 13.9 Plt Count 348 Seg Neutrophils % 77.3 Sodium 140.8 Potassium 4.7 Chloride 105 Carbon Dioxide 31 H Anion Gap 5 BUN 13 Creatinine 0.84 Est GFR ( Amer) > 60 Glucose 124 H Calcium 10.2 Total Bilirubin 0.2 AST 27 Alkaline Phosphatase 91 Total Protein 7.9 Albumin 4.8 Lipase 9265.3 H Impressions: Abdomen Ultrasound 08/16/19 10:14 IMPRESSION: NORMAL RIGHT UPPER QUADRANT ULTRASOUND. Assessment and Plan - Diagnosis (1) Acute pancreatitis Qualifiers: Pancreatitis type: alcohol induced Acute pancreatitis complication: unspecified Qualified Code(s): K85.20 - Alcohol induced acute pancreatitis without necrosis or infection Is this a current diagnosis for this admission?: Yes Plan: 08/16/2019-patient is going to be admitted to [facility] with a diagnosis of acute on chronic pancreatitis as an inpatient. He is going to be n.p.o., GI prophylaxis DVT prophylaxis initiated started on IV fluids normal saline at 150 cc/h to watch for DTs to check for a serum alcohol level and to check for the drug screen and was also started on IV morphine for pain management and IV Ativan. Patient refused CT abdomen pelvis because he said he cannot afford it. Plan is to repeat the lipase levels tomorrow. Lipase level is close to 7000 today. (2) Alcohol abuse Is this a current diagnosis for this admission?: Yes Plan: 08/16/2019-patient has history of heavy alcohol use admitted to drinking 12 packs on daily basis. To watch for the DTs. He was placed on IV Ativan 2 mg every 3 hours as needed. And he was started on banana bag. (3) Tobacco abuse Is this a current diagnosis for this admission?: No Plan: 08/16/2019-patient is a daily day smoker. Smokes close to 1 pack/day. Denies any drug use. Smoking counseling was provided for more than 20 minutes and he was placed on nicotine patch. (4) Leukocytosis Qualifiers: Leukocytosis type: unspecified Qualified Code(s): D72.829 - Elevated white blood cell count, unspecified Is this a current diagnosis for this admission?: Yes Plan: 08/16/2019-WBC count is elevated white is 18,600. Elevated leukocytosis may be secondary to acute on chronic pancreatitis.
[2019-08-16] MEDS ORDERED: NICOTINE 21 MG/24 HR PATCH.TD24 TD ONE (13:00)
[2019-08-16] MEDS: HEPARIN SOD (PORCINE) 5,000 UNIT/ML 1 ML VIAL SUBCUT SCH ×2 (13:33→21:18)
[2019-08-16] MEDS: NORMAL SALINE 1000 ML 1,000 ML IV PRN ×2 (13:34→23:00)
[2019-08-16 14:32] LABS: URINE AMPHETAMINES SCREEN NEGATIVE; URINE BARBITURATES SCREEN NEGATIVE; URINE BENZODIAZEPINES SCREEN NEGATIVE; URINE COCAINE SCREEN NEGATIVE; URINE METHADONE SCREEN NEGATIVE; URINE PHENCYCLIDINE SCREEN NEGATIVE
[2019-08-16 14:44] LABS: URINE MARIJUANA (THC) SCREEN UNCONFIRMED POSITIVE
[2019-08-16] MEDS: KETOROLAC TROMETHAMINE INJ/PF 30 MG/1 ML SDV IV PRN ×2 (15:23→21:17)
[2019-08-16] MEDS: ONDANSETRON HCL INJ/PF 4 MG/2 ML SDV IV PRN (16:21)
[2019-08-16] MEDS: MORPHINE SULFATE 10 MG/ML INJ IV PRN ×3 (16:21→22:52)
[2019-08-16] MEDS ORDERED: NORMAL SALINE 1000 ML 1,000 ML with POTASSIUM CHLORIDE 20 MEQ, MAGNESIUM SULFATE 8 MEQ,... IV SCH ×5 (18:00)
--- NOTE | 2019-08-16 20:00 | EKG REPORT ---
SEVERITY:- BORDERLINE ECG - ECTOPIC ATRIAL RHYTHM ST ELEV, PROBABLE NORMAL EARLY REPOL PATTERN : Confirmed by: Christina Sierra MD 16-Aug-2019 19:59:52
[2019-08-16] MEDS ORDERED: PANTOPRAZOLE SODIUM 40 MG VIAL IV SCH (22:00)
[2019-08-17] MEDS: MORPHINE SULFATE 10 MG/ML INJ IV PRN ×3 (02:01→08:13)
[2019-08-17] MEDS: KETOROLAC TROMETHAMINE INJ/PF 30 MG/1 ML SDV IV PRN (03:32)
[2019-08-17] MEDS: ONDANSETRON HCL INJ/PF 4 MG/2 ML SDV IV PRN (05:07)
[2019-08-17] MEDS: HEPARIN SOD (PORCINE) 5,000 UNIT/ML 1 ML VIAL SUBCUT SCH (05:12)
[2019-08-17 05:41] LABS: ABSOLUTE EOSINOPHILS # (AUTO) 0.4 10^3/uL (0.0-0.6); ABSOLUTE LYMPHOCYTES (AUTO) 3.3 10^3/uL (0.5-4.7); ABSOLUTE MONOCYTES (AUTO) 0.9 10^3/uL (0.1-1.4); ABSOLUTE NEUT (AUTO) 7.9 10^3/uL (1.7-8.2); BASOPHILS % (AUTO) 0.3 % (0-2); EOSINOPHILS % (AUTO) 3.1 % (0-6); HEMATOCRIT 37.7 % (37.9-51.0); LYMPHOCYTES % (AUTO) 26.5 % (13-45); MEAN CORPUSCULAR HGB CONC 34.6 g/dL (32.0-36.0); MEAN CORPUSCULAR VOLUME 93 fl (80-97); MONOCYTES % (AUTO) 7.3 % (3-13); PLATELET COUNT 270 10^3/uL (150-450); RED BLOOD COUNT 4.08 10^6/uL (4.35-5.55); RED CELL DISTRIBUTION WIDTH 13.9 % (11.5-14.0); SEGMENTED NEUTROPHILS % (AUTO) 62.8 % (42-78); TOTAL CELLS COUNTED % (AUTO) 100 %; WHITE BLOOD COUNT 12.6 10^3/uL (4.0-10.5)
[2019-08-17 05:43] LABS: HEMOGLOBIN 13.1 g/dL (13.5-17.0)
[2019-08-17 06:01] LABS: ALBUMIN 3.1 g/dL (3.5-5.0); ALKALINE PHOSPHATASE 58 U/L (38-126); AMYLASE 528 U/L (30-110); ASPARTATE AMINO TRANSFERASE 18 U/L (17-59); BILIRUBIN,TOTAL 0.4 mg/dL (0.2-1.3); BLOOD UREA NITROGEN 12 mg/dL (7-20); CALCIUM 8.4 mg/dL (8.4-10.2); CHOLESTEROL 99.02 mg/dL (0-200); GLUCOSE 89 mg/dL (75-110); POTASSIUM 4.2 mmol/L (3.6-5.0); TOTAL PROTEIN 5.7 g/dL (6.3-8.2); TRIGLYCERIDES 106 mg/dL (<150)
[2019-08-17 06:06] LABS: CARBON DIOXIDE 26 mmol/L (22-30); CHLORIDE 108 mmol/L (98-107)
[2019-08-17 06:12] LABS: DIRECT LDL 46 mg/dL (<100)
[2019-08-17 06:27] LABS: ANION GAP 2 (5-19)
[2019-08-17] MEDS: NORMAL SALINE 1000 ML 1,000 ML IV PRN (07:24)
[2019-08-17 08:19] VITALS: BP 120/74
[2019-08-17] MEDS ORDERED: HYDROMORPHONE HCL INJ/PF 2 MG/ML AMPULE IV ONE (08:45)
--- NOTE | 2019-08-17 10:44 | PDOC DISCHARGE SUMMARY ---
Impression - Admit/DC Date/PCP Admission Date/Primary Care Provider: 08/16/19 11:52 Discharge Date: 08/17/19 - Discharge Diagnosis (1) Acute pancreatitis Is this a current diagnosis for this admission?: Yes (2) Alcohol abuse Is this a current diagnosis for this admission?: Yes (3) Tobacco abuse Is this a current diagnosis for this admission?: No (4) Leukocytosis Is this a current diagnosis for this admission?: Yes - Assessment Summary: (1) Acute pancreatitis Qualifiers: Pancreatitis type: alcohol induced Acute pancreatitis complication: unspecified Qualified Code(s): K85.20 - Alcohol induced acute pancreatitis without necrosis or infection Is this a current diagnosis for this admission?: Yes Plan: 08/16/2019-patient is going to be admitted to [facility] with a diagnosis of acute on chronic pancreatitis as an inpatient. He is going to be n.p.o., GI prophylaxis DVT prophylaxis initiated started on IV fluids normal saline at 150 cc/h to watch for DTs to check for a serum alcohol level and to check for the drug screen and was also started on IV morphine for pain management and IV Ativan. Patient refused CT abdomen pelvis because he said he cannot afford it. Plan is to repeat the lipase levels tomorrow. Lipase level is close to 7000 today. 08/17/2019-acute pancreatitis is resolving latest lipase is 3800. Patient is advised to stay here for at least another 24 to 48 hours but he prefers to go home today with pain medications. Strongly encouraged him to quit drinking alcohol. (2) Alcohol abuse Is this a current diagnosis for this admission?: Yes Plan: 08/16/2019-patient has history of heavy alcohol use admitted to drinking 12 packs on daily basis. To watch for the DTs. He was placed on IV Ativan 2 mg every 3 hours as needed. And he was started on banana bag. 08/17/2019-no signs of alcohol withdrawal symptoms are seen during the hospital stay. Again patient was strongly advised to cut down alcohol intake and counseling was provided for more than 20 minutes. (3) Tobacco abuse Is this a current diagnosis for this admission?: No Plan: 08/16/2019-patient is a daily day smoker. Smokes close to 1 pack/day. Denies any drug use. Smoking counseling was provided for more than 20 minutes and he was placed on nicotine patch. (4) Leukocytosis Qualifiers: Leukocytosis type: unspecified Qualified Code(s): D72.829 - Elevated white blood cell count, unspecified Is this a current diagnosis for this admission?: Yes Plan: 08/16/2019-WBC count is elevated white is 18,600. Elevated leukocytosis may be secondary to acute on chronic pancreatitis. 08/17/2019-WBC count improved to 12,000. Elevated leukocytosis most likely secondary to acute on chronic pancreatitis and patient is afebrile during the hospital stay. - Additional Information Resuscitation Status: Full Code Discharge Diet: Regular Discharge Activity: Activity As Tolerated [facility]errals: [facility] [NO LOCAL MD] - Prescriptions: Oxycodone HCl/Acetaminophen [Percocet 10-325 Mg Tablet] 1 each PO Q6 PRN #15 tablet PRN Reason: Home Medications: Omeprazole 40 mg PO DAILY 02/16/19 Sertraline HCl [Zoloft] 100 mg PO DAILY 02/16/19 Gabapentin [Neurontin 400 mg Capsule] 400 mg PO TID 08/16/19 Propranolol HCl [Inderal 10 mg Tablet] 10 mg PO BIDP PRN 08/16/19 Oxycodone HCl/Acetaminophen [Percocet 10-325 Mg Tablet] 1 each PO Q6 PRN #15 tablet 08/17/19 History of Present Illiness History of Present Illness: ALBINA GARCIAS is a 39 year old male with history of alcohol abuse, history of previous episodes of pancreatitis came to the emergency room with complaints of severe abdominal pain of sudden onset associated with nausea and vomiting started this morning. He admitted drinking heavily lately. Usually drinks 12 pack of beer on daily basis. He is refusing CT abdominal pelvis and states he cannot afford the testing because he does not have any insurance. Lipase level was elevated in the ER. To admit him in the IMCU for further management. Hospital Course Hospital Course: 39 year old male with history of alcohol abuse, history of previous episodes of pancreatitis came to the emergency room with complaints of severe abdominal pain of sudden onset associated with nausea and vomiting started this morning. He admitted drinking heavily lately. Usually drinks 12 pack of beer on daily basis. He is refusing CT abdominal pelvis and states he cannot afford the fany ting because he does not have any insurance. Lipase level was elevated in the ER. To admit him in the IMCU for further management. 08/17/2019-lipase level came down to 3800 able to tolerate ice chips. Discussed the plan of care with the patient he expressed desire to go home today. I tried to convince him to stay in the hospital for further management for at least 24 to 48 hours he declined my offer prefers to go home with pain medications. Physical Exam Vital Signs: Temp Pulse Resp BP Pulse Ox 97.8 F 47 L 18 120/74 95 08/17/19 09:33 08/17/19 09:33 08/17/19 09:33 08/17/19 09:33 08/17/19 09:33 Intake & Output 08/16/19 08/17/19 08/18/19 06:59 06:59 06:59 Intake Total 4005 Output Total 400 Balance 3605 Weight 70 kg General appearance: PRESENT: mild distress Head exam: PRESENT: atraumatic Eye exam: PRESENT: PERRLA Mouth exam: PRESENT: moist, tongue midline Teeth exam: PRESENT: poor dentation Neck exam: ABSENT: carotid bruit, JVD, lymphadenopathy, thyromegaly Respiratory exam: PRESENT: decreased breath sounds Cardiovascular exam: PRESENT: RRR. ABSENT: diastolic murmur, rubs, systolic murmur GI/Abdominal exam: PRESENT: normal bowel sounds, soft, tenderness. ABSENT: distended, guarding, mass, organolmegaly, rebound Rectal exam: PRESENT: deferred Extremities exam: PRESENT: full ROM. ABSENT: calf tenderness, clubbing, pedal edema Neurological exam: PRESENT: alert, awake, oriented to person, oriented to place, oriented to time, oriented to situation, CN II-XII grossly intact. ABSENT: motor sensory deficit Psychiatric exam: PRESENT: appropriate affect, normal mood. ABSENT: homicidal ideation, suicidal ideation Results Laboratory Results: WBC 12.6 10^3/uL (4.0-10.5) H 08/17/19 05:13 RBC 4.08 10^6/uL (4.35-5.55) L 08/17/19 05:13 Hgb 13.1 g/dL (13.5-17.0) L D 08/17/19 05:13 Hct 37.7 % (37.9-51.0) L 08/17/19 05:13 MCV 93 fl (80-97) 08/17/19 05:13 MCH 32.0 pg (27.0-33.4) 08/17/19 05:13 MCHC 34.6 g/dL (32.0-36.0) 08/17/19 05:13 RDW 13.9 % (11.5-14.0) 08/17/19 05:13 Plt Count 270 10^3/uL (150-450) 08/17/19 05:13 Lymph % (Auto) 26.5 % (13-45) 08/17/19 05:13 [place] % (Auto) 7.3 % (3-13) 08/17/19 05:13 Eos % (Auto) 3.1 % (0-6) 08/17/19 05:13 Baso % (Auto) 0.3 % (0-2) 08/17/19 05:13 Absolute Neuts (auto) 7.9 10^3/uL (1.7-8.2) 08/17/19 05:13 Absolute Lymphs (auto) 3.3 10^3/uL (0.5-4.7) 08/17/19 05:13 Absolute Monos (auto) 0.9 10^3/uL (0.1-1.4) 08/17/19 05:13 Absolute Eos (auto) 0.4 10^3/uL (0.0-0.6) 08/17/19 05:13 Absolute Basos (auto) 0.0 10^3/uL (0.0-0.2) 08/17/19 05:13 Seg Neutrophils % 62.8 % (42-78) 08/17/19 05:13 APTT 32.4 SEC (23.5-35.8) 08/17/19 05:13 Sodium 136.1 mmol/L (137-145) L 08/17/19 05:13 Potassium 4.2 mmol/L (3.6-5.0) 08/17/19 05:13 Chloride 108 mmol/L (98-107) H 08/17/19 05:13 Carbon Dioxide 26 mmol/L (22-30) 08/17/19 05:13 Anion Gap 2 (5-19) L 08/17/19 05:13 BUN 12 mg/dL (7-20) 08/17/19 05:13 Creatinine 0.63 mg/dL (0.52-1.25) 08/17/19 05:13 Est GFR ( Amer) > 60 (>60) 08/17/19 05:13 Est GFR (MDRD) Non-Af > 60 (>60) 08/17/19 05:13 Glucose 89 mg/dL (75-110) 08/17/19 05:13 Hemoglobin A1c % 5.5 % (4.7-6.0) 08/17/19 05:13 Calcium 8.4 mg/dL (8.4-10.2) 08/17/19 05:13 Magnesium 2.0 mg/dL (1.6-2.3) 08/17/19 05:13 Total Bilirubin 0.4 mg/dL (0.2-1.3) 08/17/19 05:13 Direct Bilirubin 0.0 mg/dL (0.0-0.4) 08/17/19 05:13 Neonat Total Bilirubin Not Reportable 08/17/19 05:13 Neonat Direct Bilirubin Not Reportable 08/17/19 05:13 Neonat Indirect Bili Not Reportable 08/17/19 05:13 AST 18 U/L (17-59) 08/17/19 05:13 ALT 10 U/L (<50) 08/17/19 05:13 Alkaline Phosphatase 58 U/L (38-126) 08/17/19 05:13 NT-Pro-B Natriuret Pep 255 pg/mL (<125) H 08/17/19 05:13 Total Protein 5.7 g/dL (6.3-8.2) L 08/17/19 05:13 Albumin 3.1 g/dL (3.5-5.0) L 08/17/19 05:13 Triglycerides 106 mg/dL (<150) 08/17/19 05:13 Cholesterol 99.02 mg/dL (0-200) 08/17/19 05:13 LDL Cholesterol Direct 46 mg/dL (<100) 08/17/19 05:13 VLDL Cholesterol 21.0 mg/dL (10-31) 08/17/19 05:13 HDL Cholesterol 50 mg/dL (>40) 08/17/19 05:13 Amylase 528 U/L (30-110) H 08/17/19 05:13 Lipase 3801.0 U/L (23-300) H 08/17/19 05:13 TSH 2.93 uIU/mL (0.47-4.68) 08/17/19 05:13 Urine Opiates Screen UNCONFIRMED POSITIVE 08/16/19 13:40 Urine Methadone Screen NEGATIVE 08/16/19 13:40 Ur Barbiturates Screen NEGATIVE 08/16/19 13:40 Ur Phencyclidine Scrn NEGATIVE 08/16/19 13:40 Ur Amphetamines Screen NEGATIVE 08/16/19 13:40 U Benzodiazepines Scrn NEGATIVE 08/16/19 13:40 Urine Cocaine Screen NEGATIVE 08/16/19 13:40 U Marijuana (THC) Screen UNCONFIRMED POSITIVE 08/16/19 13:40 08/17/19 05:13 NT-Pro-B Natriuret Pep 255 H Impressions: Abdomen Ultrasound 08/16/19 10:14 IMPRESSION: NORMAL RIGHT UPPER QUADRANT ULTRASOUND. Plan Plan of Treatment: Patient is advised to be compliant with medications advised to quit drinking and he was also advised to set up appointment with [facility] next week. Time Spent: Greater than 30 Minutes Stroke Is this a Stroke Patient?: No Acute Heart Failure - Is this a Heart Failure Patient?: No
== END 2019-08-17 09:53 | disposition home or self-care (01) | DRG 440 ==
LOC: ER 09:43 → EH 11:52 → 3S 13:25
PROVIDERS: ADMIT Internal Medicine; ATTEND Internal Medicine
DX: K85.20 Alcohol induced acute pancreatitis without necrosis or infection (principal); F10.10 Alcohol abuse, uncomplicated; K21.9 Gastro-esophageal reflux disease without esophagitis; D72.829 Elevated white blood cell count, unspecified; F32.9 Major depressive disorder, single episode, unspecified; F17.210 Nicotine dependence, cigarettes, uncomplicated; Y90.9 Presence of alcohol in blood, level not specified
CPT/HCPCS: 36415; 76705; 80053; 80061; 80307; 82150; 83036; 83690; 83735; 83880; 84443; 85025; 85730; 93005; 93010; 96361; 96374; 96375; 96376; 99285; C9113; J1170; J1644; J1885; J2270; J2405; J3411; J3475; J3480; J3490; J7030

== ENCOUNTER → 2020-06-01 | Outpatient (CLI) | payer OTHER ==
[~2020-06-01] MED LIST: COVID-19 VACCINE (PFIZER)/PF 30 MCG/0.3 ML VIAL IM ONE; EPINEPHRINE INJ/PF 1 MG/1 ML AMPULE IM PRN
== END ==
LOC: EMPHEALTH 14:27
PROVIDERS: ATTEND Internal Medicine
DX: Z23 Encounter for immunization (principal)
CPT/HCPCS: 91300